=== PATIENT | female | born 1970 | race Caucasian/White ===

== ENCOUNTER → 2017-07-06 15:44 | Outpatient (CLI) | payer BC, SELFPAY | PROVIDERS: Visit Provider Obstetrics & Gynecology | DX: Z12.4 Encounter for screening for malignant neoplasm of cervix (principal) ==

== ENCOUNTER 2017-10-26 09:00 | Outpatient (RCR) | payer BC, SELFPAY ==
--- NOTE | 2017-10-26 09:00 | DT_ITS ---
This patient was seen during an EMR downtime October 19, 2017 - October 26, 2017. This patient may have a combination of paper and electronic documentation or all paper documentation. All documentation is viewable within the e-chart portion of [facility] for each patient visit.
--- NOTE | 2017-10-26 15:25 | BH.SGPN ---
Service Group Progress Note - Session Psychotherapy Session #1 Date Open:: 10/26/17 - 8 group members Time Started:: 09:04 Time Stopped:: 10:02 Targeted Problem #:: 1 Type of Group:: Process Goal of Group:: The goal of today's group was to check-in with client's mood, stressors, and positives, and introduce topic for the day. Client Response/Progress/Benefit:: Client responded well to session, first day in IOP. Client reports feeling anxious today, but glad she is getting help. Client shared she has been struggling with anxiety and depression most of her life with symptoms worsening over the past few months. Client reported its mentally and physically painful to make myself do things. Client stated she is often stuck in the past and would like to work on challenging thoughts to get out of my head. Client was receptive to emotional support given by peers and therapist. Client appeared to benefit from gaining support and connecting with the group. Client to continue IOP to prevent decompensation and reduce depressive symptoms. Eye Contact:: Good Motor Activity:: Appropriate Appearance:: Casual Speech:: Appropriate Mood:: Anxious, Dysthymic Affect:: Flat - tearful Thoughts:: Linear, Logical, No evidence of hallucinations/delusions noted Staff Interventions:: Therapist used open-ended questions to elicit information about client's current stressors and mood state. Therapist was supportive by using active listening and reflection.
--- NOTE | 2017-10-27 07:28 | BH.SGPN_ITS ---
Service Group Progress Note - Session Psychotherapy Session #1 Date Open:: 10/26/17 - 8 group members Time Started:: 09:04 Time Stopped:: 10:02 Targeted Problem #:: 1 Type of Group:: Process Goal of Group:: The goal of today's group was to check-in with client's mood, stressors, and positives, and introduce topic for the day. Client Response/Progress/Benefit:: Client responded well to session, first day in IOP. Client reports feeling ?anxious? today, but glad she is getting help. Client shared she has been struggling with anxiety and depression most of her life with symptoms worsening over the past few months. Client reported ?it?s mentally and physically painful to make myself do things.? Client stated she is often ?stuck in the past? and would like to work on challenging thoughts to ? get out of my head.? Client was receptive to emotional support given by peers and therapist. Client appeared to benefit from gaining support and connecting with the group. Client to continue IOP to prevent decompensation and reduce depressive symptoms. Eye Contact:: Good Motor Activity:: Appropriate Appearance:: Casual Speech:: Appropriate Mood:: Anxious, Dysthymic Affect:: Flat - tearful Thoughts:: Linear, Logical, No evidence of hallucinations/delusions noted Staff Interventions:: Therapist used open-ended questions to elicit information about client's current stressors and mood state. Therapist was supportive by using active listening and reflection.
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
--- NOTE | 2017-10-30 14:47 | BH.PSY.EVA_ITS ---
Initial Treatment Plan - Patient Information Visit Information: ADMISSION DATE: EXPECTED LOS: 4-6 weeks Diagnoses:: Major depressive disorder F 33.1 - Problems/Symptoms Problem #1:: Depression Symptom:: Sad mood, anhedonia, decreased energy, biologic disruption of appetite , recent passive thoughts of , difficulty concentrating Problem #2:: anxiety Symptom:: Rumination, panic, intrusive traumatic memories
--- NOTE | 2017-11-02 09:30 | BH.SGPN_ITS ---
Service Group Progress Note - Session Psychotherapy Session #2 Date Open:: 10/26/17 Time Started:: 10:15 Time Stopped:: 11:10 Targeted Problem #:: 1 Type of Group:: Illness Management Goal of Group:: To increase understanding and awareness of emotions connected to change and the impact those emotions can have on change. Client Response/Progress/Benefit:: Client passive participant as evidenced by limited contributions throughout group session. Client appeared to connect with others comments about fear failure and not wanting to leave comfort zone as common barriers to making change. Client also appeared to connect with the change process as evidenced by client nodding her head throughout discussion. Client seemed to benefit from increasing awareness of the process of change and how various emotions can impact ones ability to manage change. Client's passive participation could be attributed to today being client's first day in [facility]. Eye Contact:: Fair Motor Activity:: Restless Appearance:: Casual Speech:: Appropriate Mood:: Anxious, Depressed Affect:: Constricted Thoughts:: Linear, No evidence of hallucinations/delusions noted Staff Interventions:: Therapist facilitated group discussion about change. Therapist led the group in an activity in which the activity was utilized as a tool to increase clients awareness of emotions connected with change. Therapist led the processing of how each emotion was connected with change. Therapist provided psychoeducation process of change, helped group members apply it to their life. Therapist was supportive by providing feedback and using reflective listening. Psychotherapy Session #3 Date Open:: 10/26/17 Time Started:: 11:20 Time Stopped:: 12:15 Targeted Problem #:: 1 Type of Group:: Functional Skills Development Goal of Group:: To identify the challenges associated with making change and identify positive outcomes that have resulted from changes made in past. Client Response/Progress/Benefit:: Client passive participant only contributing if elicited by therapist did appear to attentively listen to others. Client showed increased engagement during challenge activity as evidenced by her being active throughout. Appeared to agree with others comments about change being unpredictable and the importance of utilizing supports when in need. Client identify one small change she is going to make is to do at least 5 minutes of daily meditation. Client seemed to benefit from identifying one small change she is going to start doing today. Eye Contact:: Fair Motor Activity:: Restless Appearance:: Casual Speech:: Appropriate Mood:: Anxious, Depressed Affect:: Constricted Thoughts:: Linear, No evidence of hallucinations/delusions noted Staff Interventions:: Therapist led group in an activity to help group members recognize the challenges associated with change. Therapist utilized activity as a tool to identify ways to manage changes and adapt to the challenges that ensue. Therapist facilitated group discussion about positive outcomes from change.
--- NOTE | 2017-11-03 10:37 | BH.SGPN_ITS ---
Service Group Progress Note - Session Psychotherapy Session #3 Date Open:: 10/30/17 Time Started:: 11:12 Time Stopped:: 12:03 Targeted Problem #:: 1 Type of Group:: Functional Skills Development - 6 participants Goal of Group:: The goal of group was to increase understanding of the different types of social support. Another goal was to identify one type of support the client?s desire from their support system and brainstorm ways to best communicate these needs as well establish one small step towards achieving that support. Client Response/Progress/Benefit:: Client responded well to session and appeared to take in information discussed. This was evidenced by client nodding head and maintaining mostly consistent eye contact throughout. CLient indicated connecting with topic of communicating support needs with social supports as she indicated struggling at times to know how to do this in a way her support person understands. CLient benefitted from being in the group environment as she indicated connecting with the experiences shared by fellow participants. Client displaying progress as she was more engaged in the group setting. Recommended continued IOP to increase client skills for managing symptoms of anxiety and communication with supports. Eye Contact:: Fair Motor Activity:: Appropriate Appearance:: Casual Speech:: Appropriate Mood:: Anxious, Dysthymic Affect:: Constricted Thoughts:: Linear, Logical, No evidence of hallucinations/delusions noted Staff Interventions:: Therapist facilitated group discussion on the different types of social support and importance of each type of support. A social support worksheet, was utilized to give clients direction in identifying which type of support they desired, how it will help, and identifying the first small step towards the desired support. Therapist provided homework for each group member to try and accomplish the one small step each group member identified on the worksheet.
--- NOTE | 2017-11-06 15:17 | BH.SGPN_ITS ---
Service Group Progress Note - Session Psychotherapy Session #1 Date Open:: 11/06/17 Time Started:: 09:10 Time Stopped:: 10:00 Type of Group:: Process - 8 group members Goal of Group:: The goal of today's group was to check-in with client's mood, stressors, and positives, and review homework. Client Response/Progress/Benefit:: Spoke when prompted. Shared very little during check-in. Emotion for today is anxious. Went to a conference over the weekend which was anxiety-producing however I managed becuase I had too. Went over some struggles. Benefited from group support. Little progress noted. Appears to minimize at times during group. Will continue in IOP to stablize mood , improve daily functioning, and prevent further decompensation. Eye Contact:: Poor Motor Activity:: Appropriate Appearance:: Casual Speech:: Appropriate Mood:: Anxious Affect:: Congruent Thoughts:: Linear, Logical, No evidence of hallucinations/delusions noted Staff Interventions:: Therapist used open-ended questions to elicit information about client's current stressors and mood state. Therapist was supportive by using active listening and reflection.
--- NOTE | 2017-11-06 15:38 | BH.SGPN ---
Service Group Progress Note - Session Psychotherapy Session #1 Date Open:: 11/06/17 Time Started:: 10:05 Time Stopped:: 11:05 Targeted Problem #:: 1 Type of Group:: Illness Management Goal of Group:: To increase understanding of fixed vs growth mindset and the importance of looking at problems in different ways. Client Response/Progress/Benefit:: Client passive participant AEB only contributing to discussion if elicited by therapist. Client showed increased engagement during challenge activity and appeared to listen attentively to others throughout discussions. Client appeared to connect with the fixed vs. growth mindset AEB client writing down notes throughout discussion. Client did share if she believes something is impossible she will just avoid it because she doesn't want to fail. Client shared the only reason she participated in activity today was because she had supportive people being encouaraging and if she was asked to do the activity by herself she would have given up. Client recognizes this holds her back from making progress. client seemed to benefit from gaining increased insight into how her response to challenges impacts her. Eye Contact:: Fair Motor Activity:: Appropriate Appearance:: Casual Speech:: Appropriate Mood:: Anxious, Dysthymic Affect:: Constricted Thoughts:: Linear, Logical, No evidence of hallucinations/delusions noted Staff Interventions:: Therapist facilitated discussion about fixed vs growth mindset. Therapist led group in an activity that would initially seem impossible to complete, but once group members looked at the problem in a different way they would be able to see alternative solutions. Therapist utilized the activity as a tool to discuss overcoming those situations that seem impossible to get through.
--- NOTE | 2017-11-06 16:57 | BH.MDN ---
Multi-Disciplinary Note - Note 45-min Individual Time Started:: 11:30 Date: 11/06/17 Purpose of session/treatment goals addressed:: The purpose of this session was to assess current stressors, symptoms, and distorted thinking patterns. Another purpose was to intoroduce the concept of cognitive distortions and work with client to discuss realistic expectations, and challenge cognitive distortions that increase ruminations. Other topics included: review of CBT thought record. Eye Contact:: Good Motor Activity:: Appropriate Appearance:: Casual Speech:: Appropriate Mood:: Anxious, Depressed Affect:: Constricted Thoughts:: Linear, Logical, No evidence of hallucinations/delusions noted Staff Interventions:: Therapist used active listening and open-ended questions to explore client's thoughts and adjustment to group setting following completion of her first week. Elicited information regarding current stressors, symptoms, cognitive distortions, and use of coping skills. Therapist provided psychoeducation on cognitive distortions and reviewed each distorted thinking style. Worked with client to identify, challenge, and reframe cognitive distortions. Therapist helped client assess and challenge expectations for herself, her progress, and treatment goals. Client Response:: Client responded well to session and indicated being open to meeting with therapist. She did well to discuss current stressors and symptoms as well as ongoing difficulties in adjusting to the group environment. CLient indicated enjoying the program and feeling as though she is getting valuable information from content discussed in each session; however, continues to struggle with her own self-doubt while in the group setting. She went on to explain being fearful of saying something wrong or embarrassing herself which has held her back from providing input at times. Client responded well to reassurance that adjusting to a new group setting can be difficult and often takes a week or so to feel comfortable. Client went on to discuss experiencing similar difficulties when in groups comprised of people she knows. Client shared often thinking that others are judging her or misinterpreting a comment to believe that someone is attacking her or talking down to her. CLient provided an example related to a recent experience in which she had believed a friend who was trying to give a compliment on her confidence by saying Amy wouldn't have just stood there and taken it, she would've told them like it is had called her selfish and brash instead. Client identified beliefs that her expectations for herself are much higher than the expectations she has for others. She stated often struggling to be in the present moment as she is constantly thinking about the past or future and analyzing the statements of others. Client and therapist discussed concept of cognitive distortions and client identified specific thoughts related to each type of distortion that she has experienced. Client expressed identifying most with black and white thinking, personalization, and catastrophizing. Client and therapist walked through various strategies for challenging these thoughts and discussed identifying the evidence for/against a thought as well as ways to reframe her thoughts into something more positive. Client expressed wanting to practice this on a more consistent basis on her own and discussed plans to begin keeping a journal of the negative thoughts she has throughout the day and ripping them up at night. Client open to choosing 1-2 of these thoughts and challenging them in a CBT thought record in order to begin identifying alternative ways to view her thoughts. Risks/Concerns:: Client denies suicidal or homicidal ideation, plan, and intent as of 11/06/17. Client is future oriented and aware of crisis resources available. She expresses her family as motivations to continue making strides in learning to manage mental health sx. Progress Toward Goals/Plan:: Client demonstrating some progress in willingness to open up to the group and provide input during sessions. Client additionally displaying progress towards treatment goals as she was able to begin identifying distorted thinking patterns and did well to work with this therapist on identifying unrealistic expectations of herself. Client continues to report difficulties with intrusive and ruminating thoughts. She shares that this continues to reinforce self-deprecating talk and anxiety regarding what others are thinking of her. Recommended continued IOP to work on implementing strategies for reducing and challenging ruminations as well as increasing client stress management and boundary setting capabilities while learning to manage mental health symptoms. Time Stopped:: 12:15
--- NOTE | 2017-11-09 14:48 | BH.SGPN_ITS ---
Service Group Progress Note - Session Psychotherapy Session #2 Date Open:: 11/09/17 - 9 group members Time Started:: :25 Time Stopped:: 11:15 Targeted Problem #:: 1 Type of Group:: Illness Management Goal of Group:: To increase understanding of communication and the various types of communication. Another goal was to increase understanding of impact communication styles can have. Client Response/Progress/Benefit:: Client responded well to session, passive participant, taking notes. Client connected with the quote sharing, I don?t always use good communication.? Client reported communication is important to help supports understand clients? mental health. Client identified communication ?roadblocks? such anxiety, mind-reading, and emotions. Client helped the group identify the different communication types along with the payoffs and costs of each. Client reported she uses passive and passive- aggressive communication most of the time. Client reported ?I either say something and feel guilty or don?t say anything.? Client stated her needs are not being met with her current communication style. Client appeared to benefit from gaining awareness of how communication impacts mental health. Progress noted as evidenced by client?s improved self-awareness, but can continue to benefit from challenging negative thoughts. Eye Contact:: Good Motor Activity:: Appropriate Appearance:: Casual Speech:: Appropriate Mood:: Anxious Affect:: Flat Thoughts:: Linear, No evidence of hallucinations/delusions noted Staff Interventions:: Therapist facilitated the group discussion about communication and explained the different types of communication. Therapist assisted group members in connecting the communication styles to the way they communicate and impact the communication style has on their relationships. Therapist provided support by using active listening and providing feedback. Psychotherapy Session #3 Date Open:: 11/09/17 - 7 group members Time Started:: :25 Time Stopped:: 12:15 Targeted Problem #:: 1 Type of Group:: Functional Skills Development Goal of Group:: To identify important components of communication and practice specific, clear communication. Client Response/Progress/Benefit:: Client responded well to session, passive participant, using active listening. Client provided some feedback during the activity, but was mostly quiet. Client expressed anxiety prevents client from being assertive and sharing in group because client does not want to say the wrong thing. Client shared emotions, nonverbal communication, and assumptions impact communication. Client reported she wants to be more assertive to help client?s needs get met. Client helped the group identify strategies to improve communication such as having awareness of nonverbals and body language, managing emotions, and using specific communication. Client appeared to benefit from gaining awareness of the pros of using more assertive communication. Client to continue IOP to prevent decompensation and reduce anxiety. Eye Contact:: Good Motor Activity:: Appropriate Appearance:: Casual Speech:: Appropriate Mood:: Anxious Affect:: Flat Thoughts:: Linear, Logical, No evidence of hallucinations/delusions noted Staff Interventions:: Therapist led the discussion about important components of effective communication. Therapist had volunteers from group participate in a reverse Pictionary game. The game required all group members to provide clear , specific, and assertive communication to help the volunteer draw the correct image. Therapist used the activity as to connect the importance of effective communication in mental health treatment. Therapist processed the activity with the group and helped the group identify strategies to improve communication skills.
--- NOTE | 2017-11-09 16:46 | BH.SGPN ---
Service Group Progress Note - Session Psychotherapy Session #1 Date Open:: 11/09/17 Time Started:: 09:07 Time Stopped:: 10:18 Targeted Problem #:: 1 Type of Group:: Process - 8 participants Goal of Group:: The goal of today's group was to check-in with client's mood, stressors, and positives, review homework and introduce topic for the day. Client Response/Progress/Benefit:: Client responded well to session, openly shared with the group, and was receptive of feedback. She discussed having had an enjoyable start to her weekend as she had been able to spend time with family for her nephew's birthday. She went on to discuss increasing frustration with her 24 year old daughter who client has taken on the responsibility of providing transportation for due to her daughter not having a license. Client discussed that providing her transportation is not the biggest stressor but rather caring for her daughter's twp puppies when she is away during the day. Client indicated that she has tried to set boundaries but ends up feeling too guilty about leaving the dogs alone and ends up giving in. CLient benefitted from the supportive feedback and suggestions provided by the group. CLient displayed progress in her ability to open up to the group and discuss current frustrations without fear of judgement preventing her in doing so. CLient continues to struggle with rumination and distorted thinking patterns and is recommended continued IOP to continue to work on challenging unhelpful thinking patterns and negative core beliefs. Eye Contact:: Good Motor Activity:: Appropriate Appearance:: Casual Speech:: Appropriate Mood:: Anxious, Irritable, Depressed Affect:: Congruent Thoughts:: Linear, Logical, No evidence of hallucinations/delusions noted Staff Interventions:: Therapist used open-ended questions to elicit information about client's current stressors and mood state. Therapist was supportive by using active listening and reflection. Therapist utilized a quote as a tool in introducing the topic of the day.
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
--- NOTE | 2017-11-13 14:55 | BH.SGPN ---
Service Group Progress Note - Session Psychotherapy Session #1 Date Open:: 11/13/17 Time Started:: 09:08 Time Stopped:: 10:18 Targeted Problem #:: 1 Type of Group:: Process - 7 participants. Goal of Group:: The goal of today's group was to check-in with client's mood, stressors, and positives, review homework and introduce topic for the day. Client Response/Progress/Benefit:: Client responded well to session and was actively engaged throughout. She did well to remain attentive as fellow participants discussed current thoughts, feelings, and treatment progress. Client benefited from hearing experience of fellow participants ongoing frustrations with symptom management as well as the various healthy skills they have found effective in challenging negative or distorted thinking patterns. Client discussed spending the day at [facility] yesterday with her [id number] and nephews and nieces. She indicated that the trip had gone all right but near the end of the day client began to become overheated which caused increased anxiety levels as client feared becoming sick. She discussed ruminating on this and that her anxiety began to impact her overall mood and ability to enjoy her trip. Client shared frustration with failing to utilize thought challenging and reframing techniques in the moment as she was able to identify ways to challenge her thoughts later in the evening. Client was receptive to follow participants discussing that her ability to think about these thoughts afterward is still progress and that she will become more capable of applying skills in the moment with continued practice. Client is displaying progress in her receptivity of treatment concepts and willingness to attempt application of skills learned in daily life. Recommended continued IOP in order to further increase clients ability to successfully implement skills outside of treatment environment. Eye Contact:: Good Motor Activity:: Appropriate Appearance:: Casual Speech:: Appropriate Mood:: Anxious, Dysthymic Affect:: Congruent Thoughts:: Linear, Logical, No evidence of hallucinations/delusions noted Staff Interventions:: Therapist used open-ended questions to elicit information about client's current stressors and mood state. Therapist was supportive by using active listening and reflection.
--- NOTE | 2017-11-16 09:11 | BH.SGPN_ITS ---
Service Group Progress Note - Session Psychotherapy Session #2 Date Open:: 11/13/17 Time Started:: 10:30 Time Stopped:: 11:20 Targeted Problem #:: 1 Type of Group:: Illness Management Goal of Group:: To increase understanding of cognitive distortions, identify examples of when have had unhelpful thinking, and increase awareness of the impact cognitive distortions have on mental health. Client Response/Progress/Benefit:: Client passitve participant, contributing to discussion if elicited by therapist. Client appeared to connect when reviewing the 10 common cognitive distortions. Client identified she connected with catastrophizing and overgeneralization the most. Client appeared to relate to others comments how one's distorted thoughts can create an event or situation that really hasn't occured like believing someone doesn't like you, but has no evidence to support this thought. Client seemed to benefit from increasing awareness of cognitive distortions and impact thoughts can have on one's functioning. Eye Contact:: Fair Motor Activity:: Appropriate Appearance:: Casual Speech:: Appropriate Mood:: Anxious, Dysthymic Affect:: Congruent Thoughts:: Linear, Logical, No evidence of hallucinations/delusions noted Staff Interventions:: Therapist provided group members with a handout that listed ten cognitive distortions with examples. Therapist facilitated group discussion about cognitive distortions. Therapist led group members in an activity to help them understand the impact cognitive distortions can have on emotions and behavior. Therapist provided support by using active listening and providing feedback. Psychotherapy Session #3 Date Open:: 11/13/17 Time Started:: 11:30 Time Stopped:: 12:20 Targeted Problem #:: 1 Type of Group:: Functional Skills Development Goal of Group:: To identify ways of defeating cognitive distortions and rehearse defeating the identified cognitive distortion. Client Response/Progress/Benefit:: Client seemed more engaged thoughout session AEB client contributing to group without elicitation by therapist and listened attentively to others. Client identified a distorted thought she often has is I 'm probably going to have a panic attack when I get to work. Client reported this thought results in feeling more anxious and recognzies now she is predicting the future. Client able to reframe thought to I have successfully been to work on many occassions and have not had a panic attack. Client seemed to benefit from rehearsing identifying cognitive distortions and practicing reframing. Eye Contact:: Fair Motor Activity:: Appropriate Appearance:: Casual Speech:: Appropriate Mood:: Anxious, Dysthymic Affect:: Constricted Thoughts:: Linear, Logical, No evidence of hallucinations/delusions noted Staff Interventions:: Therapist utilized an activity as a tool in helping clients connect the amount of effort one will need to put forth to defeat cognitive distortions. Therapist provided group members with a handout to use as an aid when trying to defeat their unhelpful thinking. Therapist processed the worksheet with group members, helping them reframe the cognitive distortions.
[2018-01-01 10:57] VITALS: BP 116/73; PULSE 64; RESP 14
== END 2017-11-14 23:59 ==
LOC: BHIOP 09:00
PROVIDERS: Visit Provider Psychiatry & Neurology Psychiatry
DX: F33.1 Major depressive disorder, recurrent, moderate (principal); F41.9 Anxiety disorder, unspecified; F43.10 Post-traumatic stress disorder, unspecified
CPT/HCPCS: H0035; 90834; 90853

== ENCOUNTER 2017-11-17 09:00 | Outpatient (RCR) | payer BC, SELFPAY ==
--- NOTE | 2017-11-16 14:52 | BH.COMM ---
Communication Note - Communication with Client Communication Note: Client called to cancel group attendance on this date as she forgot about a previously scheduled appointment. Client indicates she will be in for group in the morning.
--- NOTE | 2017-11-17 11:26 | BH.MDN ---
Multi-Disciplinary Note - Note 60-min Individual Time Started:: 12:13 Date: 11/17/17 Purpose of session/treatment goals addressed:: The purpose of this session was to assess current symptoms and treatment goal progress. Another purpose was to increase client insight and awareness of early warning signs and triggers for anxiety and panic symptoms as well as potential strategies for preventing symptom escalation. Additional topics included: communication and boundaries with supports. Negative self-talk. Eye Contact:: Good Motor Activity:: Appropriate Appearance:: Casual Speech:: Appropriate Mood:: Anxious Affect:: Congruent Thoughts:: Linear, Logical, No evidence of hallucinations/delusions noted Staff Interventions:: Therapist aksed open-ended and futhering questions to gather Client current symptoms, stressors, and treatment goal progress. Provided psychoeducation regarding Anxiety Disorder, common symptoms, and coping skills. Assisted Client in identifying symptoms and warning signs personally experienced. Worked with client to discuss the importance of healthy boundaries and consistently practicing strategies for managing sx to prevent panic. Client Response:: Client receptive of meeting for session, and engage throughout. She did well to openly provide input and insight into current symptoms and progress towards treatment goals. Client discussed feeling as though she is finally beginning to see progress in her management of mental health sx; however, expressed ongoing frustrations with he difficulties applying treatment concepts in the moment. She didcussed continuing to see what ways she may have reacted or challenged her thoughts following a moment of increased anxiety but is unable to do so during. CLient indicated that she had an ah-garcía moment during group in which she was able to see why practing the skills she is learning is important. Client went on to explain never thinking about how if she practices thought challenging it will come more naturally in a crisis moment. CLient additionally shared struggling to identify when she is becoming anxious and indicated that often she does not notice until she is in a crisis state. Client and therapist reviewed importance of warning sign awaress to prevent symptom escalation and reviewed common warning signs, triggers, and symptoms for anxiety. Client struggled at first with identifying personal triggers but began to increase in ability to do so as she reflected upon recent experiences of increased anxiety. CLient indicates lack of routine and being away from home for too long as major triggers. She was receptive of the idea of having her supports point out potential warning signs and triggers they have seen to increase awareness. Client receptive of also thinking about what would help in moments she is experiencing increased anxiety so that she may communicate such with her supports. CLient growing concern regarding a family vacation at the end of the month. She expressed worrying that her daughter and sister will fight the whole time. Client believes this will increase her anxiety. She did wellt o work with therapist on identifying what within the situation is in her control and what she can do to prevent a panic attack during vacation. CLient discussed wanting to create an anxiety management plan and shared that discussing her concerns with her daughter may also prevent some fighting. Risks/Concerns:: No risks or concerns at this time. CLient SI, plan, or intent at this time, 11/17/17. Progress Toward Goals/Plan:: Client displaying consistent progress in IOP program. She reports increased ability to identify distorted thoughts after the fact, thought struggles to do so in the moment. CLient expresses ongoing issues with anxiety and ruminating thought, though shared that she is able to gain back control and challene these thoughts quicker. Client reports that duration of anxiety has decreased since beginning iop program. Client is additionally expressing an increase in ability to identify what thoughts and behaviors contribute to anxious thoughts. CLient recommended continued IOP to maintain stability and continue to work with client on applying anxiety management and thought challenging techniques moments of increased panic or rumination in order to prevent crisis escalation. Time Stopped:: 13:18
--- NOTE | 2017-11-17 14:04 | BH.SGPN_ITS ---
Service Group Progress Note - Session Psychotherapy Session #1 Date Open:: 11/17/17 - 5 group members Time Started:: 09:10 Time Stopped:: 10:07 Targeted Problem #:: 1 Type of Group:: Process Goal of Group:: The goal of today's group was to check-in with client's mood, stressors, and positives, review homework and introduce topic for the day. Client Response/Progress/Benefit:: Client responded well to session, active participant. Client stated this week has been ?crazy? so far as client feels overwhelmed with all of the tasks she has to do which leads to client putting her needs on the ?backburner.? Client stated she continues to struggle with feeling like she has to help everyone and client was provided positive feedback from peers on the importance of setting boundaries. Client shared her anxiety is typically most intense in the mornings, but client recognizes once she gets going ?it?s never as bad as I think it will be.? Client reports feeling ?hopeful ? despite the busy week as she has been doing better with implementing thought challenging strategies to manage negative thoughts and anxiety. Client appeared to benefit from gaining supportive statements from peers on boundary setting and self-care. Client to continue IOP to prevent decompensation and reduce anxiety. Eye Contact:: Good Motor Activity:: Appropriate Appearance:: Neat Speech:: Appropriate Mood:: Anxious Affect:: Constricted Thoughts:: Linear, Logical, No evidence of hallucinations/delusions noted Staff Interventions:: Therapist used open-ended questions to elicit information about client's current stressors and mood state. Therapist was supportive by using active listening and reflection.
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
--- NOTE | 2017-11-17 15:08 | BH.SGPN ---
Service Group Progress Note - Session Psychotherapy Session #2 Date Open:: 11/17/17 Time Started:: 10:20 Time Stopped:: 11:15 Targeted Problem #:: 1 Type of Group:: Illness Management Goal of Group:: To increase understanding of a crisis and improve clients awareness of how he/she feels when in a crisis. Client Response/Progress/Benefit:: Client passive participant, contributing if elictied by therapist. Client reported she could connect with the how she responds to a crisis can either help her or make things worse. Client shared when she is in a crisis she feels like it is a never ending loop because she keeps ruminating and overthinking the situation. client shared she connected with the idea of needing to rehearse skill when not distressed because individuals will go back to what is comfortable which often is negative skills. client reported she used to believe if she thought out a situation it would make things better, but recognizes it leads to obsessive thinking and no resolution. Client shared she didn't know why it was recommeded for her to practice the skills when not in distress, but now understands the rationale. Client seemed to benefit from gaining awareness of the way she yoko with a crisis impacts her. Eye Contact:: Fair Motor Activity:: Appropriate Appearance:: Casual Speech:: Appropriate Mood:: Anxious Affect:: Constricted Thoughts:: Linear, Logical, No evidence of hallucinations/delusions noted Staff Interventions:: Therapist facilitated group discussion about defining a crisis and specifying various events that are considered a crisis. Therapist led group in an activity in which group members had to identify their thoughts and emotions attached to being in a crisis. Therapist provided support by using active listening and providing feedback. Psychotherapy Session #3 Date Open:: 11/17/17 Time Started:: 11:25 Time Stopped:: 12:15 Targeted Problem #:: 1 Type of Group:: Functional Skills Development Goal of Group:: To increase awareness of warning signs before a crisis and identify interventions/coping strategies that would help clients proactively manage potential crises. Client Response/Progress/Benefit:: Client showed increased engagement and participation throughout session. Client identified her top 3 warning signs that she is starting to not do well include: unusual drop in functioning, increased negative thinking, and racing thoughts. Client shared for her crisis survival kit she chose a pink string because the color pink is calming and she could use it to create a bracelet. Client reported chose a seashell because the beach is her happy place. Shared chose a teabag because finds drinking tea to be soothing and calm. Reported she chose a flower to remind her that nature is calming and enjoyable. Lastly client reported she chose the word cherish to remind her that she has positive supports she can surround herself with. Client seemed to benefit from increasing awareness of her warning signs and creating a crisis kit that is tangible and visable to client which will help her remember her positive skills in the moment. Eye Contact:: Fair Motor Activity:: Appropriate Appearance:: Casual Speech:: Appropriate Mood:: Anxious Affect:: Congruent Thoughts:: Linear, Logical, No evidence of hallucinations/delusions noted Staff Interventions:: Therapist led the group in discussion about identifying personal warning signs before a crisis and importance of being aware of those signs.Therapist provided the group with various types of items and asked each group member to select five items that represent something that would be helpful in managing their warning signs of a crisis. Therapist facilitated group processing of the crisis emergency kits each group member created. Therapist used open-ended questions to encourage elaboration of each item chosen for their kit. Therapist helped clients connect how the crisis emergency kit could help be a crisis prevention tool.
--- NOTE | 2017-11-23 09:10 | BH.SGPN.GN ---
Behaviors/Verbalizations/Mental Status: [] Client maintain clear and consistent eye contact throughout. Motor activity was appropriate, speech WNL. Client was dressed casually and comfortable. Mood appeared euthymic and anxious, expressed as apprehensive. Client affect congruent with mood. Thoughts remained linear, logical, and No delusions or hallucinations noted. Client Response/Progress/Benefit: [] Client responded well to session was an active participant throughout. Discussed that her we can have been super busy but overall positive experience. Client indicated she and her had taken a trip out of town to celebrate their anniversary. Client discussed that prior to them leaving for the trip her sister had decided that she and her [id number] would also like to come along which had been a bittersweet experience for everyone. Client went on to explain that her sister can be very uptight about things and had gotten upset when she saw that the place they were staying for the weekend was dated. Client indicated that this initially caused her to fall into negative thought patterns and think the whole trip is ruined or why does she always do this. She however did well to recognize and challenge these thoughts and indicated that doing so allowed for client to replace the negative emotions with thoughts of I'm not going to let this ruin the whole trip for me. Client shared beginning to see positive progress in her ability to manage anxieties and negative thinking patterns. She is recommended continued IOP to further improve healthy skill utilization and management of mental health symptoms.
--- NOTE | 2017-11-23 10:27 | BH.SGPN.GN ---
Behaviors/Verbalizations/Mental Status: []Client alert and oriented, neatly dressed and groomed. Eye contact good. Motor activity appropriate. Speech within normal limits. Affect constricted, mood anxious. Thoughts linear, logical, no signs of hallucinations or delusions. Client Response/Progress/Benefit: []Client responded well to session, participating when prompted. Client connected with the quote sharing, I catastrophize and then feel worse. Client helped group identify the physical, mental, behavioral, and emotional impacts of stress. Client reported theres healthy and unhealthy stress, but when one experiences continued stress it can lead to burnout, panic, and depression. Client shared stress gets me first mentally sharing she has a hard time shutting off my mind when highly stressed. Client identified current stressors in her life such as setting boundaries, negative self-talk, other peoples problems, and family. Client shared her stress jar is over correction full, which client described as manageable due to thought challenging. Client stated when she does not manage stress, client has panic attacks, racing thoughts, and feels overwhelmed. Client appeared to benefit from gaining awareness of her current stressors and how they impact mental health. Client to continue IOP to prevent decompensation and increase mood stability.
--- NOTE | 2017-11-23 11:29 | BH.SGPN.GN ---
Behaviors/Verbalizations/Mental Status: []Client alert and oriented, neatly dressed and groomed. Eye contact good. Motor activity appropriate. Speech within normal limits. Affect constricted, mood anxious. Thoughts linear, logical, no signs of hallucinations or delusions Client Response/Progress/Benefit: []Client responded well to session, participating in activity and discussion. Client engaged in the group activity and connected it to managing stress sharing, you have to communicate and use your supports. Client helped the group create a list of helpful stress management strategies and identified strategies that would help her deal with stress such as having awareness of stressors, prioritizing, challenging cognitive distortions, and focusing on stressors in her control. Client reported of her current stressors, negative thinking, boundaries, and managing emotions are in clients control. Client was receptive to learning the four As of coping with stress and appeared to benefit from learning different ways to manage stress. Client seems to be progressing as evidenced by her report of increased self-awareness when client has negative thinking patterns, but continues to struggle at times with consistent implementation of coping skills.
--- NOTE | 2017-11-25 13:35 | BH.COMM ---
Communication Note - Communication with Client Communication Note: Client called and requested to speak with this therapist . She discussed struggling with increased anxiety for the past two hours without relief. Client discussed attempting to use the skills she has learned while in the IOP program however has been unsuccessful. She worked with this therapist to talk through and process anxiety provoking thoughts as well as apply thought challenging techniques. Client and therapist discussed a plan for client to write herself a letter reminding her of the evidence against these unhelpful thoughts as well as what client's personal strengths are. Client able to calm herself down throughout conversation with this therapist; however, indicated feeling as though this means she is starting back at square one with her anxiety. Client receptive of discussion reviewing setbacks as part of the process of making progress. Client indicated that her sister would be coming over which would help to take client's mind of of the negative self-talk. Expressed that if she experiences high levels of anxiety tomorrow she may come in for group.
--- NOTE | 2017-11-27 09:10 | BH.SGPN.GN ---
Behaviors/Verbalizations/Mental Status: [] Eye contact is fair. Motor activity is restless. Appearance is casual. Speech is appropriate. Mood is anxious. Affect is congruent. Thoughts are linear and logical. No evidence of hallucinations or delusions noted. Client Response/Progress/Benefit: [] Pt spoke with prompted. Shared that her emotion today is anxious. Shared that she had significant anxiety symptoms this week w/o any specific trigger. States that she is frustrated as she had started to see progress. Reports that he coping skills seemed ineffective and her mind was racing. Vented her frustrations and symptoms. Group provided feedback and support. Encouraged her to not label this anxiety episode or herself as a failure. Pt struggled with anxiety this week, however did attempt to utilize skills and support rather than isolate. Will continue in IOP to stabilize mood, decrease anxiety, and improve daily functioning. Narrative Note: []
--- NOTE | 2017-11-27 10:15 | BH.SGPN.GN ---
Behaviors/Verbalizations/Mental Status: [Client alert and orient x3. She was able to participate in group and maintained regular eye contact throughout. Client motor activity normal - at times appearing restless AEB client fidgeting, though remained engaged. Appearance was neat but casual, grooming and hygiene well maintained. Speech remained within normal limits. Mood was dysthymic, anxious, affect constricted. Thoughts remained linear and logical, void of observable hallucination or delusions.] Client Response/Progress/Benefit: [Client willing to engage in session and did well to remain a mostly active participant throughout. She took on a mostly passive participatory role however provided some input to the conversation discussing various conflict resolution styles and potential scenarios in which each would be appropriate to use. CLient benefited from identifying the various positive qualities of each resolution style and challenging herself to reflect upon which type of conflict resolution style she utilizes in her own life. Client discussed feeling as though she is either one extreme or another and either is accommodating and goes along with whatever everyone else says until she becomes tired of not feeling heard and then becomes a shark. CLient displaying progress in levels of insight regarding the impact her own thoughts have on her mental health and treatment progress and is beginning to actively challenge such. Recommended continued IOP to continue to make progress towards tx goals and improve client thought challenging capabilities, as well as to prevent decompensation. ] Narrative Note: []
--- NOTE | 2017-11-27 11:16 | BH.SGPN.GN ---
Behaviors/Verbalizations/Mental Status: [Client alert and orient x3. Active participant, well engaged. Maintained fair eye contact throughout. Client motor activity normal - at times fidgeting. Appearance was clean and casual, grooming and hygiene well maintained. Speech remained within normal limits. Mood was euthymic, anxious. affect congruent. Thoughts remained linear and logical, void of observable hallucination or delusions. ] Client Response/Progress/Benefit: [Client responded well to session and did well to provide input throughout. CLient appeared to benefit from challenging herself to engage in the group activity in which participants were given a hypothetical situation causing them to make difficult decisions about what items to keep as a group. She was able to speak up and vocalize her opinions with the group. Client discussed tat this was easier in the activity than in daily life because the setting was more comfortable and she knew that the outcome was less important. Client shared that often times she does not advocate for her own needs in her daily life out of fear of what people with think or not wanting to be a burden. Client displaying some progress in ability to identify distorted thought patterns however recommended continued IOP to further improve ability to challenge negative or distorted thinking in order to reduce overall anxiety and depression levels. ] Narrative Note: []
--- NOTE | 2017-11-27 15:03 | PCM.PN.BLA ---
Progress Note Patient is seen in follow-up for major depressive disorder recurrent moderate of 33.1, anxiety unspecified, PTSD. History is been obtained per interview with patient, discussion with staff, review of chart. Case discussed with treatment team. Chief complaint anxiety help me back Interim history Patient reports that her mood is overall improved. She continues to have some mild depressive symptoms which wax and wane but she feels that her anxiety predominates. She states that for 2 weeks she was doing pretty well but her anxiety increased 2 days ago. She reports increased negative rumination and intrusive traumatic memories. She endorses anxiety about being alone. Discussed symptoms associated with PTSD. No suicidal or homicidal ideation. No symptoms consistent with psychosis. Consuming 2-4 caffeinated sodas daily. Sleeping from 10 PM to 7 AM. Appetite normal. Denies nausea vomiting or diarrhea. Compliant with medications. Celexa 20 mg daily, trazodone 50 mg nightly, metoprolol. Denies adverse effects. Has not used Xanax. Used Atarax only once within the past few weeks. Mental status exam Alert and oriented . No acute distress. Ambulatory with normal gait and station. Appears stated age. Casually dressed and groomed. Appropriate hygiene. Cooperative with interview. Good eye contact. No psychomotor agitation or retardation. Mood improved.. Affect congruent. Speech is clear and with regular rate and rhythm. Language fluent. Thought process organized. Associations logical. Thought content significant for ruminative anxiety and themes of depression. No suicidal or homicidal ideation related or detected.. No symptoms consistent with psychosis noted or detected. Immediate recent and remote memory grossly intact. Attention and concentration are fair. Estimated intelligence and fund of knowledge average. Judgment and insight improving.\ Labs and testing TSH normal August 2017. Further lab work will be obtained as needed Diagnosis Major depressive disorder recurrent moderate F 33.1 Anxiety unspecified PTSD Plan Continue IOP as the structured setting is necessary to maintain gains and prevent decompensation. Risks benefits alternatives of medications discussed with patient. Patient acknowledges understanding. Continue Celexa 20 mg daily. Continue trazodone 50 mg nightly. Continue Atarax 25 mg 1-2 p.o. daily as needed. Continue metoprolol. Referral provided to the [facility] for trauma therapy. Encouraged decrease caffeine use. Encouraged to establish with outpatient psychiatric providers for when IOP complete. 25 minutes of Insight oriented psychotherapy provided regarding trauma. Patient acknowledges understanding and is in agreement with plan. Feels able to maintain safety. Agrees to seek help or emergency care feeling unsafe to self or others. End of dictation thanks
--- NOTE | 2017-11-27 16:13 | BH.MDN_ITS ---
Multi-Disciplinary Note - Note 45-min Individual Time Started:: 12:17 Date: 11/27/17 Purpose of session/treatment goals addressed:: The purpose of this session was to address client ongoing concerns regarding daily anxiety and difficulty managing rumination or anxiety provoking thoughts. Another purpose was to discuss strategies for Client to practice to both prevent and better manage symptoms of anxiety on a daily basis. Eye Contact:: Good Motor Activity:: Restless Appearance:: Casual Speech:: Appropriate Mood:: Anxious, Dysthymic Affect:: Congruent Thoughts:: Linear, Logical, No evidence of hallucinations/delusions noted Staff Interventions:: Therapist used open-ended questions to gather information on current symptoms, thoughts, and stressors. Reviewed with Client current strategies used for managing symptoms of anxiety and rumination. Reviewed with client various previously identified coping mechanisms and further discussed potential strategies for thought challenging. Used CBT interventions to review Cognitive Distortions and discuss application of cognitive restructuring, use of client supports, and mindfulness techniques to reduce current anxiety levels. Client Response:: Client responded well to session and receptive of meeting with therapist. She discussed doing better today than she had been on Thursday when client had called in to speak with this therapist due to increased sx of anxiety. Client reflected that for her it appears her anxiety is at its worst during the morning hours and usually takes 2-3 hours before she is able to calm down. When asked to review her typical morning routine, client indicated that she does not usually have a set routine but finds herself avoiding getting out of bed because she knows she is going to feel anxious and that things are only going to get worse from here. Client indicated that talking through the worrying thoughts with a support is helpful but that she struggles with identifying ways to ease her anxieties on her own. She responded well to working with therapist on identifying areas of distorted thinking she may be experiencing in the morning and recognized use of predicting the future or catastrophizing before client even gets out of bed. Client shared beliefs that if she can prevent herself from entering the rumination cycle she will be able to more easily prevent escalating to panic levels; however, struggles to find what interventions or calming skills may keep her from falling into cycle of rumination. Client connected with the idea of beginning to establish a more structured morning routine as she has previously discussed that she likes having a schedule to adhere to. CLient indicated wanting to incorporate exercise into her routine as she feels this will help her to redirect her thoughts and focus more on what she is accomplishing rather than ruminate on not knowing what else could occur that day. Client additionally discussed that her sister is often helpful as she has similar struggles with managing anxieties. Client indicated never inquiring what helps her sister manage anxiety and decrease rumination. Client open to setting aside time to discuss this with supports over the weekend as well as begin establishing a morning routine of limiting time in bed to prevent engaging negative thoughts and instead doing an active activity such as going for a walk or practicing a yoga [employer] video. Risks/Concerns:: Client denies suicidal or homicidal ideation, plan, and intent as of 11/27/17. Client is future oriented and aware of crisis resources available. She expresses her family as motivation to continue making strides in learning to manage mental health sx and maintaining safety. Progress Toward Goals/Plan:: Some regression. Client has expressed experiencing increased anxiety and rumination throughout the morning hours. She expressed that she has seen limited impact in reducing or managing these symptoms during the moment of increased anxiety and on one occasion experienced a panic attack due to sx escalation. CLient reports struggling to implement thought challenging interventions or calming strategies as client indicates that by the time she realizes she is anxious her symptoms have reached a point where she feels unable to control them. Client is beginning to identify the importance of practicing tx concepts outside of times of increased anxiety however continues to struggle with self-doubt and disbelief in her ability to successfully manage sx when supports are unavailable. CLient recommended continued IOP tx to maintain stability and increase successful identification and implementation of internal coping mechanisms and stress management strategies. Time Stopped:: 13:00
--- NOTE | 2017-12-01 09:12 | BH.SGPN.GN ---
Behaviors/Verbalizations/Mental Status: [Client alert and orient x3. Well engaged. Client maintained good eye contact throughout. Motor activity appropriate; somewhat restless AEB shakig legs and fidgeting with shirt. Appearance was casual and clean, grooming and hygiene appropriate. Speech within normal limits. Mood was dysthymic, anxious, affect constricted. Thoughts linear and logical, with no present hallucinations or delusions. Therapist reviewed clients symptom tracker to assess for intensity of mental health symptoms and identify risk for suicide. No signs of suicidal ideation, plan, or intent to date.] Client Response/Progress/Benefit: [Client responded positively to session, active participant throughout. She indicated connecting with another participant's check-in in which they shared reflecting upon what it means to forgive and why we forgive in the first place. Client discussed feeling as though she has spent so much time focusing on the things she has done wrong and worrying about how they might impact her in the future that she has not been able to really experience the resent. CLient went on to indicate beliefs that her mental health would improve if she began practicing self-forgiveness, however is strugglig to identify where she should start. Client benefitted from group members encouragement and discussions regarding their own difficulties in letting go of mistakes or failures. She is displaying progress in her ability to identify where her locus of control lies in managing negative or ruminative thoughts. Client recommended continued IOP tx to maintain stability as client continues to work on thought challenging and cognitive restructuring skills.] Narrative Note: []
--- NOTE | 2017-12-01 10:30 | BH.SGPN.GN ---
Behaviors/Verbalizations/Mental Status: []Client alert and oriented, neatly dressed and groomed. Eye contact good. Motor activity appropriate. Speech within normal limits. Affect constricted, mood anxious, euthymic. Thoughts linear, logical, no signs of hallucinations or delusions. Client Response/Progress/Benefit: []Client responded well to session, active participant. Client appeared to connect with the topic stating, life is chaos, but you have to learn to manage it. Client shared she has felt anxious, overwhelmed, and stuck when faced with life stressors, but connected that she has been able to make it through because client is resilient. Client reported that resilience is bouncing back after a hardship. Client helped peers identify the factors that contribute to building resilience such as self-care, living to learn, and self-awareness. Client shared she has been working on being aware of her negative thoughts and being more optimistic to build resilience. Client appeared to benefit from increasing awareness of resilience and the factors that help build resilience. Progress noted per clients report of incorporating thought-challenging more often to combat ruminations, but continues to struggle with managing anxiety and guilt. Client to continue IOP to prevent decompensation and increase mood stability.
--- NOTE | 2017-12-01 16:49 | BH.MDN_ITS ---
Multi-Disciplinary Note - Note 60-min Individual Time Started:: 11:30 Date: 12/01/17 Purpose of session/treatment goals addressed:: Review progress, assess current symptoms, and aid in addressing and problem solving current concerns. Addressed treatment goal 1 objective 1 & 2. Eye Contact:: Good Motor Activity:: Appropriate Appearance:: Casual Speech:: Appropriate Mood:: Anxious Affect:: Constricted Thoughts:: Logical, Circular, No evidence of hallucinations/delusions noted Staff Interventions:: Use open-ended questions to elicit additional iformation regarding current symptoms and stressors. Utilize DC techniques to elicit change behaviors and problem solve current barriers to managing anxieties. Aided client in applying thought challenging and replacement techniques as well as assisted client in creating anxiety management plan for upcoming vacation. Client Response:: Current receptive of session and actively engaged throughout. She openly discussed ongoing difficulties in managing symptoms of anxiety including regular intrusive thoughts and ruminations. Client discussed attempting to implement a more consistent morning routine over the weekend which she found was somewhat helpful, however had difficulties in consistently doing so. Client indicated that she found reminding herself not to predict the future and challenge thoughts related to assuming she will experience anxiety and panic. Client additionally indicated that having things to look forward to and being aware of the routine for the day is helpful in preventing from further anxious thoughts. She reflected that this is due to feeling increasingly uncomfortable when unaware of the plan or what she can expect happen. Client identified that she has begun to have increased anxiety regarding upcoming vacation due to fear of struggling to manage anxiety or deal with unexpected schedule changes. Client discussed ongoing anxious thoughts related to concerned that her daughter and sister will be unable to get along. Client indicates feeling increasingly anxious during times in which her supports are not getting along or arguing. She appears to be improving and ability to recognize potential triggers for anxiety and is more consistently applying calming skills when encountering triggers or removing herself from situation. Client did well to work with therapist on identifying potential strategies for addressing concerns with her daughter in order to prevent potential disagreements during vacation. Client additionally able to identify strategies she may utilize if feeling increasingly anxious such as walking away, taking a b reak, reminding herself she does not have to solve the problem, and asserting healthy boundaries regarding not wanting to engage in negative talk or complaining when spending time with sister. Discussed plans to speak with her daughter about developing a plan for upcoming vacation this evening. Risks/Concerns:: No risks or concerns noted. Denies SI, plan, or intent as of this date 12/01/17 Progress Toward Goals/Plan:: Progress noted. Client continues to report consistent application of anxiety management strategies, specifically utilizing internal coping mechanisms on a more regular basis. Client reports increased use of thought challenging, reframing, and positive self talk. She continues to endorse issues with preventing ruminations however has improved ability to effectively challenge and decrease duration of anxiety related symptoms.Will continue in IOP to maintain gains, prevent decompensation, and stabalize mood. Time Stopped:: 13:12
--- NOTE | 2017-12-01 16:50 | BH.MTP_ITS ---
Treatment Plan Review Date of Admission:: 10/26/17 Date of Treatment Plan Review:: 11/27/17 Admitting Diagnoses:: MDD, Anxiety unspecified, PTSD Current Diagnoses:: MDD, Anxiety unspecified, PTSD Patient's Response to Treatment:: Pt has remained an active participant in IOP program. No issues with attendance or tardiness. Reports ongoing motivation to continue to implement tx skills learned. Continues to report issues with ongoing intrusive negative thoughts causing rumination and self-doubt. Client discussed ruminating on past decisions and fear of others knowing her mistakes which impact ability to manage anxiety producing sx. Client continues to experience panic attacks though in decreased frequency/intensity, indicating that these no longer occur daily and are more easily managed. When present, panic sx continue to impact functioning and ability to actively apply treatment skills on a consistent basis. Client has remained medication compliant throughout program attendance. Reports increased use of internal coping skills such as thoughts stopping, reframing, challenging cognitive distortions, DBT components of radical acceptance, and mindfulness. Improvement from previous reliance on distraction as primary means of sx management. Status of Current Problems and Symptoms: Client continues to endorse ongoing sx of anxiety due to difficulties in managing intrusive thoughts and fears resulting in increased rumination and at times panic. Client indicates recognizing an improved ability to identify and challenge these thoughts when they occur, often decreasing the intensity and duration; however continues to struggle with preventing ruminations or managing them on a consistent basis. CLient discussed ruminating on past decisions and fear of others knowing her mistakes, as well as fears of embarrassing herself in public or being judged, which impact ability to manage anxiety producing sx. Reports overall increased self-confidence and is more hopeful and motivated that she will be able to cont inue to improve and managesx. Plan to continue with iop treatment plan goals and focus on continued use of internal copin strategies as well as prevent decompensation, maintain gains, and set up discharge care. Problem #1 Problem Name:: Anxiety, intrusive and ruminating thought, panic Status of Goals:: Pt has been making some progress towards treatment goals. She Can identify 2-3 cognitive distortions resulting in increased anxiety and ruminating thoughts. Client reports these mainly relate to guilt/fear associated with her past, fear of being judged by others or embarrassing self, and not being able to keep up with current responsibilities. Client appears to have increased self-awareness and improved ability challenging irrational thoughts and distortions, though continues to struggle with consistent application in the moment and often cites means of managing anxious thoughts in hindsight. Has not been able to adequately identify specific triggers or warning signs for anxiety . Team Recommendations:: Continue to with current plan as pt is responding well and making progess. Increase focus on preventing crisis escalation. Planned discharge in next 2-3 weeks. Problem #2 Problem Name:: Depression, anhedonia Status of Goals:: Client continues to work on goals, however has not completed both objectives. She reports decreased depression and indicates improved communication with her support, specifically with her . Client continues to reports ongoing difficulties in challenging negative core beliefs that impact self-esteem. She is beginning to practice self-acceptance and more consistently work on challenging negative and self-depricating thoughts. However, client continues to report difficulties in believing positive self-statements and struggles to replace mistaken beliefs. Though client reports improved communication with , she continues to struggle in consistently communicating needs and concerns. Team Recommendations:: Continue to with current plan as pt is responding well and making progess. Increase focus on implementing use of internal coping skills to better challenge and replace negative and mistaken beliefs. Planned discharge in next 2-3 weeks.
--- NOTE | 2017-12-04 09:09 | BH.SGPN.GN ---
Behaviors/Verbalizations/Mental Status: [Client receptive of session, remained alert and orient x3. She was an active participant and increasingly engaged in discussion compared to baseline. Client maintained clear and consistent eye contact throughout. Motor activity appeared appropriate. Appearance was clean, grooming and hygiene well maintained. Speech within normal limits. Mood was calm and reflective, affect euthymic - congruent with mood. Thoughts remained linear and logical, with no present hallucinations or delusions. Therapist reviewed clients symptom tracker to assess for intensity of mental health symptoms and identify risk for suicide. No signs of suicidal ideation, plan, or intent to date.] Client Response/Progress/Benefit: [client responded positively to session and did well to remain engaged throughout. She discussed feeling more in control of her emotions and reactions to anxiety producing thoughts. Client shared that she had made some important connections and realizations in her individual session on Thursday which helped her to more easily begin identifying and challenging distorted thinking patterns. Client discussed that by working on accepting the situation and no longer trying to change what is out of her control has made it easier to manage anxiety producing thoughts. She benefitted from making connections with fellow participants regarding struggling to remain patient with her treatment progress. Client increased ability to implement cognitive restructuring techniques of replacing negative thoughts with alternative positives. Recommended continued IOP tx to promote ongoing consistency of symptom management and application of skills learned, as well as prevent decompensation.] Narrative Note: []
--- NOTE | 2017-12-04 10:10 | BH.SGPN.GN ---
Addendum entered and electronically signed by Mirtha Wren [facility] 12/07/17 11:57: Start time should be corrected to reflect a start time of: 1015 with an end time of 1110. Original Note: Behaviors/Verbalizations/Mental Status: []Pt eye contact good, casually dressed, motor activity appropriate, speech normal rate and tone, mood anxious, congruent affect, thoughts linear and intact, no evidence of delusions or hallucinations. Client Response/Progress/Benefit: []Pt active and engaged throughout group session, listened to others. Pt agreed with peers that personal growth will not just happen by chance, it requires her to put forth the effort to use her skills and supports to see change. Pt identified setting boundaries as an important when it comes to having personal growth because without boundaries she becomes overwhelmed and opens herself up to being taken advantage of. When processing activity pt verbalized anxiety, but was able to utilize self-talk and breathing techniques to keep herself calm and engaged in activity. Pt connected importance of communication and being willing to try new ideas as positive forces that helped group be successful. Pt seemed to benefit from increased awareness of impact of positive and negative forces. Narrative Note: []
--- NOTE | 2017-12-04 11:20 | BH.SGPN.GN ---
Behaviors/Verbalizations/Mental Status: [] Pt eye contact fair, casually dressed, motor activity restless, speech normal rate and tone, mood anxious, congruent affect, thoughts linear and logical, no evidence of delusions or hallucinations. Client Response/Progress/Benefit: [] Client active and engaged throughout group session as evidenced by contributed to discussion and listening attentively to others. Client identified her positive forces to include: Positive support people, setting goals, asking for help, and looking for her improvement in growth that she is . Client reported negative forces that hold her back from progress include: Fear, and willingness to try new things, not taking care of her emotional needs, poor communication, and negative attitude. Client identified fear is the force in her life that currently impacts her the most because she recognizes fear holds her back from trying new things and moving forward towards progress. Client recognizes she has made a lot of progress since the time starting IOP but realizes she needs to continue to work on increasing her positive forces in her life. Client seemed benefit from increased awareness of her positive forces as well as thinking about what she can do to improve stability and continue to move forward. Narrative Note: []
--- NOTE | 2017-12-14 09:05 | BH.SGPN.GN ---
Behaviors/Verbalizations/Mental Status: [Client maintained consistent eye contact, casually dressed, motor activity within normal limits, speech normal rate and tone, mood euthymic,anxious expressed as a little anxious, affect congruent, thoughts linear and logical, no evidence of delusions or hallucinations. Therapist reviewed clients symptom tracker to assess for intensity of mental health symptoms and identify risk for suicide. No signs of suicidal ideation, plan, or intent to date.] Client Response/Progress/Benefit: [Client responded well to session and able to provide encouragement and input to the group. She shared feeling a little anxious today as she has just returned from vacation and always feels a little more anxious following a trip. CLient went on to share trying to break things down and only focus on what she needs to be doing right now. CLient rather than everything that she needs to get caught up on. Client benefitted from processing with the group frustration regarding her daughter's lack of engagement with the family during the trip and feeling judged by her sister for how she had managed the situation. Client responded well to the feedback and suggestions provided. She indicated that she had been proud of her ability to step back and ask herself what about the situation was in her countrol. Client displaying increased confidence levels and indicates decreased rumination. She is recommended continued IOP tx to increase consistency of skill application and prevent decompensation. ] Narrative Note: []
--- NOTE | 2017-12-14 10:35 | BH.SGPN.GN ---
Behaviors/Verbalizations/Mental Status: []Client alert and oriented, neatly dressed and groomed. Eye contact good. Motor activity appropriate. Speech within normal limits. Affect congruent-smiling and laughing, mood euthymic. Thoughts linear, logical, no signs of hallucinations or delusions. Client Response/Progress/Benefit: []Client responded well to session, active participant. Client appeared to connect to the quote sharing, our emotions make something seem impossible. Client stated she used to think managing her anxiety was impossible and did not think IOP would help, however, client recognizes she has improved with managing her anxiety, so its not impossible. Client reported having an impossible mindset can keep someone from taking steps to make changes which can negative impact mental health. Client participated in the activity, providing feedback and positive support. Client shared having done this activity before it was interesting to see that there is more than one strategy to solving the problem, which client connected with overcoming impossible situations in life. Client appeared to benefit from recognizing the consequences of viewing situations as impossible and practicing overcoming an impossible situation. Client progressing as shown by her report of reduced negative thinking, but can continue to benefit from IOP to promote mood stability.
--- NOTE | 2017-12-14 11:32 | BH.SGPN.GN ---
Behaviors/Verbalizations/Mental Status: []Client alert and oriented, neatly dressed and groomed. Eye contact good. Motor activity appropriate. Speech within normal limits. Affect constricted, mood euthymic. Thoughts linear, logical, no signs of hallucinations or delusions Client Response/Progress/Benefit: []Client responded well to session, active participant. Client appeared to connect with growth versus fixed mindset and provided examples for each. Client helped the group process the benefits of growth mindset and identify strategies to obtain a grow mindset when faced with challenges. Client identified going back to school at 32 as something client thought would be impossible, but she was able to accomplish. Client stated when she looks back at this accomplishment it makes her feel more positive about overcoming difficult situations in the future. Client able to identify internal and external resources that can help client overcome current barriers of boundaries and negative thinking such as thought challenging and self-awareness. Client appeared to benefit from learning about growth mindset and increasing awareness of internal and external resources that may help client overcome current barriers. Client has progressed as evidenced by her report of generalizing healthy coping skills, but client can continue to benefit from mood stability and setting boundaries to manage stress.
--- NOTE | 2017-12-14 16:20 | BH.MDN ---
Multi-Disciplinary Note - Note 60-min Individual Time Started:: 12:25 Date: 12/14/17 Purpose of session/treatment goals addressed:: The purpose of this session was to check-in with Client regarding current sx, stressors, and treatment goal progress. Another purpose was to discuss with client strategies for improving effective communication with supports and family in order to improve ability to establish and maintain healthy boundaries. Eye Contact:: Good Motor Activity:: Appropriate Appearance:: Casual Speech:: Appropriate Mood:: Euthymic, Anxious Affect:: Congruent Thoughts:: Linear, Logical, No evidence of hallucinations/delusions noted Staff Interventions:: Therapist used open-ended questions to explore client's current stressors and concerns, as well as review continued areas of tx progress. Commended Client for current progress with challenging distorted thinking patterns and implementing more consistent use of thought challenging and coping skills identified. Therapist provided psychoeducation regarding boundary setting and effective communication strategies as well as worked with client on identifying strategies for improving current communication strategies with current supports. Provided client with contact information for Providers for [facility] to begin discharge planning, schedule an intake assessment, and get additional information regarding the DBT group to begin next month. Client Response:: Client responded well to session, actively engaged throughout. She shared feeling glad to be back in group but somewhat more depressed and anxious now that she has returned from vacation. Client noted that increased anxiety is common for her upon returning from a trip as she often begins worrying about everything she has to get accomplished now. CLient receptive of discussing breaking things down into smaller tasks. She went on to reflect upon her recent trip and shared that she had been looking forward to sharing time with her family but was upset that her daughter had spent a large duration of the trip off with firends. Client indicated that she struggled with knowing how to communicate with her daughter without coming across as mean or not respecting that she is an adult now while also dealing with pressure from her sister to do something about the situation. Client inidcated she has been struggling to be a positive support for her daughter without enabling her. She responded well to discussion regarding effective communcation strategies such as putting herself in her daughter's shoes or providing her daughter with positive feedback and encouraging healthy behaviors. Client discussed ongoing issues with comparing herself to others and not wanting to make anyone mad or feeling she has to justify herself when telling someone no. She and therapist processed various scenarios in which Client could assert healthy boundaries by using effective and assertive communication skills discussed. CLient additionally discussed not knowing how to respond when something does not go as planned or if someone responds to her in a way she did not anticipate. Client and therapist reviewed the importance of taking a step back to process or gather more information in order to create an alternative plan of action. Client expressed plans to have a discussion with her daughter regarding ways they can begin improving their communication with one another. Risks/Concerns:: Denies any suicidal ideations, plan, or intent as of 12/14/17. No risks of concerns noted. Progress Toward Goals/Plan:: Client displaying progress in her ability to manage symptoms of anxiety. Client identified increased ability to identify what worries are outside of her control as well as practice radical acceptance in dealing with change. CLient notes ongoing issues with negative self-esteem and poor boundaries with her supports. She shared that she has been able to identify what boundaries would be helpful and why however has difficulties when trying to communicate these needs due to feeling guilty or as though this makes her a bad mother. Client has made consistent strides in using healthy distrations as a means for managing and decreasing ruminative thoughts. Current plan is to remain in IOP tx until 12/25 to continue to make progress in challengig and replacing distorted thinking patterns as well as complete an aftercare anxiety management plan, and set up aftercare services with providers for healthy living. Time Stopped:: 13:35
--- NOTE | 2017-12-24 11:17 | BH.SGPN.GN ---
Behaviors/Verbalizations/Mental Status: [Client maintained good, consistent eye contact throughout, casually dressed, grooming/hygiene well maintained, motor activity was appropriate, speech normal rate and tone, mood euthymic, anxious, affect congruent with mood, thoughts linear and logical - able to make connections with content discussed, no evidence of delusions or hallucinations.] Client Response/Progress/Benefit: [Client again did well to remain actively engaged in the group discussion. She expresses specifically connecting with the psychoeducation portion reviewing the emotional energy matrix. Client benefitted from discussing factors that may contribute to her struggling to prevent maintaining a heightened state of alertness. Client expressed connecting with how rumination and fear of experiencing panic may only maintain her anxieties or further escalate them. Client appears increasingly able to identify hopeful strategies for easing her anxieties and challenging distorted thinking patterns when recognizing she is in the yellow zone as well as necessary skills for maintaining baseline and preventing anxiety escalation. Client to discharge from IOP program on this date and is recommended to continue working on anxiety management and skill application in individual therapy on outpatient basis. ] Narrative Note: []
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
== END 2017-12-15 23:59 ==
LOC: BHIOP 09:00
PROVIDERS: Visit Provider Psychiatry & Neurology Psychiatry
DX: F33.1 Major depressive disorder, recurrent, moderate (principal); F41.9 Anxiety disorder, unspecified; F43.10 Post-traumatic stress disorder, unspecified
CPT/HCPCS: H0035; 90834; 90837; 90853

== ENCOUNTER 2017-12-18 09:00 | Outpatient (RCR) | payer BC, SELFPAY ==
--- NOTE | 2017-12-18 09:05 | BH.SGPN.GN ---
Behaviors/Verbalizations/Mental Status: []Client alert and oriented, neatly dressed and groomed. Eye contact good. Motor activity appropriate. Speech within normal limits. Affect full, mood euthymic. Thoughts linear, logical, no signs of hallucinations or delusions. Reviewed clients symptom tracker, no risk for suicidal ideation, plan, or intent as of 12/18/17. Client Response/Progress/Benefit: []Client responded well to session, engaged in discussion and providing insight. Client reports feeling hopeful today because coping skills are finally starting to work for me. Client shared she has tried many techniques to manage her anxiety and negative thinking, but in the past nothing has worked. Client reported challenging her negative thoughts and self-talk have been most helpful. Client identified her positives as being able to go to an appointment with her dad without getting super anxious and using thought challenging to prevent catastrophizing yesterday. Client shared she continues to struggling with implementing coping skills at times, but client reports belief healthy coping is becoming more of a habit. Client appeared to benefit from reflecting on progress and gaining praise from group. Progress noted as evidenced by clients report of improved mood and active use of coping skills. Client to continue IOP to promote gains and increase coping skill consistency.
--- NOTE | 2017-12-18 10:18 | BH.SGPN.GN ---
Behaviors/Verbalizations/Mental Status: [Client alert and orient x3. She maintained good, consistent eye contact throughout. She was casually dressed, motor activity restless - often moving around in seat, speech normal rate and tone, mood euthymic, anxious - at times appearing distracted by her own thoughts or to be holding back during discussion. Congruent affect, thoughts linear and logical - at times thoughts appearing consistent with ruminative anxiety, no evidence of delusions or hallucinations.] Client Response/Progress/Benefit: [Client responded well to session, actively engaged throughout. She did well to provide input to the group and worked with fellow participants to identify the merits of setting individual goals and how goals can promote mental health. Client identified that setting goals gives you something to work towards and can keep you on track. She appeared to benefit from the education piece describing SMART goal criteria and indicated connecting with the attainable component as Client shared often talking herself out of things or taking on too much at once. Client took on a leadership role during the activity portion and worked with the group to apply SMART goal criteria to the activity as well as apply creative problem solving strategies in oder to order improve the likelihood they reach their goal. Client displaying progress in her ability to connect treatment concepts to her daily life and better manage sx of anxiety. Client recommended continued IOP tx to maintain stability and further improve ability to consistently manage mental health sx.] Narrative Note: []
--- NOTE | 2017-12-18 11:27 | BH.SGPN.GN ---
Behaviors/Verbalizations/Mental Status: [Client alert and orient x3, maintained consistent eye contact throughout, casually dressed, motor activity appropriate. Speech was normal rate and tone, mood anxious and euthymic, congruent affect, thoughts linear and logical, no evidence of delusions or hallucinations.] Client Response/Progress/Benefit: [Responded well to session and actively engaged participant throughout. Light receptive of working in small groups on processing the various potential barriers to setting goals as well as identifying personal goals for improving mental health to management over this weekend. Client indicated her personal goal would be to say 2-3 affirmations each day for a week in order to reduce symptoms of anxiety and irritability. Client benefited from identifying potential benefits accomplishing the school may have on continuing progress towards mental health treatment goals. She indicated that achieving this goal would help to challenge her thoughts and improve awareness of how often she utilizes negative thinking patterns. Slight progress in her ability to identify additional supports that may aid in successful goal completion. Recommended continued IOP treatment in order to maintain current gains and stability, as well as reinforce application of healthy skills identified for management of anxiety and rumination. ] Narrative Note: []
--- NOTE | 2017-12-18 13:45 | PCM.PN.BLA ---
Progress Note Patient is seen in follow-up for major depressive disorder recurrent moderate F 33.1, anxiety unspecified, PTSD. History has been obtained per interview with patient, discussion with staff, review of chart. Case discussed with treatment team. Chief complaint-depression and anxiety Better than when I started. Interim history Mild to moderate depressive symptoms persist but of decreased intensity over the past 3 weeks. Attributes improvement to coping skills gained through IOP. Reports she is thought challenging. Decreased negative thinking. Decreased negative self judgments. Continued ruminating thoughts but now I have more tools. Reports ongoing ruminative anxiety but overall of decreased intensity. Denies panic attacks. No suicidal or homicidal ideation. No symptoms consistent with psychosis. Sleeping from 10:30 PM until 6 or 7 AM. Appetite normal. Denies nausea vomiting or diarrhea. Consuming 2 caffeinated sodas daily. Denies ingestion of alcohol or use of illicit drugs. Compliant with Celexa 20 mg daily. Has not needed Xanax. Has used Atarax only once. Mental status exam Alert and oriented . No acute distress. Ambulatory with normal gait and station. Appears stated age. Casually dressed and groomed. Appropriate hygiene. Cooperative with interview. Good eye contact. No psychomotor agitation or retardation. Mood depressed improved. Affect congruent. Speech is clear and with regular rate and rhythm. Language fluent. Thought process organized. Associations logical. Thought content significant for ruminative anxiety and themes of depression. No suicidal or homicidal ideation related or detected. No symptoms consistent with psychosis noted or detected. Immediate recent and remote memory grossly intact. Attention and concentration are fair. Estimated intelligence and fund of knowledge average. Judgment and insight improving. Labs and testing TSH normal August 2017. Diagnosis Major depressive disorder recurrent moderate F 33.1 Anxiety unspecified PTSD Plan Continue IOP as the structured setting is necessary to maintain gains and prevent decompensation. Patient will likely benefit from ongoing IOP treatment. Risks benefits alternatives of medications discussed with patient. Patient acknowledges understanding. Continue Celexa 20 mg daily. Continue trazodone 50 mg nightly. Continue Atarax 25 mg p.o. daily as needed for anxiety. Encouraged decreased caffeine use. Encouraged to follow-up for providers for healthy living. 18 minutes of Insight oriented psychotherapy provided. Discussed cope ahead skills. Patient acknowledges understanding and is in agreement with plan. Feels able to maintain safety. Agrees to seek help or emergency care if feeling unsafe to self or others.
--- NOTE | 2017-12-24 09:05 | BH.SGPN.GN ---
Behaviors/Verbalizations/Mental Status: []Client alert and oriented, neatly dressed and groomed. Eye contact good. Motor activity appropriate. Speech within normal limits. Affect congruent, mood euthymic,anxious. Thoughts linear, logical, no signs of hallucinations or delusions. Reviewed clients symptom tracker, no risk for suicidal ideation, plan, or intent as of 12/24/17. Client Response/Progress/Benefit: []Client responded well to session, providing supportive statements and coping skills to peers. Client reports feeling a little anxious but hopeful today as client is getting ready to discharge from [facility]. Client acknowledged the progress she has made with challenging negative thoughts, not catastrophizing, and using healthy coping skills to prevent panic. Client stated, I just worry I'll forget what I learned this place is like a safety net. With therapist and group feedback, client identified reasons why she will be able to maintain progress and continue using skills such as reading her notes and practicing daily. Client reports plan to continue with outpatient counseling and will advocate for herself by telling her new therapist the techniques and strategies that helped client in [facility]. Client appeared to benefit from reflecting on progress and processing anxiety. Client has made significant progress towards treatment goals and will discharge tomorrow 12/25/17.
--- NOTE | 2017-12-24 10:15 | BH.SGPN.GN ---
Behaviors/Verbalizations/Mental Status: [Client maintained good, consistent eye contact throughout, casually dressed - appearance well kempt, motor activity was appropriate, client mood was anxious, euthymic, affect bright, speech normal rate and tone, thoughts logical and linear, no evidence of delusions or hallucinations.] Client Response/Progress/Benefit: [Client responded well to session, actively engaged in both the discussion and activity portions of session. She indicated connecting with conversation discussing various factors that may contribute to struggling to maintain healthy emotion regulation. CLient indicated that for her rumination and unrealistic expectations of herself can cause increased anxiety and ultimately lead to client experiencing increased depression as well. Client appeared to benefit from the activity in which participants were given a prompt in which they were challenged to regulate their own emotions and stress response while attempting to communicate with other participants. CLient did well to identify ways in which the barriers in activity may relate to difficulties in preventing a negative stress response in daily life. CLient displaying progress in her ability to more easily identify potential healthy means for overcoming and managing identified barriers and setbacks. CLient has made significant progress in her ability to better manage symptoms of anxiety and depression and is to discharge from IOP program on this date. Recommended continued focus on challenging distorted thinking patterns in outpatient therapy.] Narrative Note: []
--- NOTE | 2017-12-24 14:18 | BH.MDN ---
Multi-Disciplinary Note - Note 60-min Individual Time Started:: 12:25 Date: 12/24/17 Purpose of session/treatment goals addressed:: The purpose of this session was to review client's progress and areas of personal growth, discuss ways for client to continue to advocate for her needs post discharge , and review strategies that will continue to promote mood stability and gains made in IOP. Another goal was to discuss aftercare and discharge recommendations. Eye Contact:: Good Motor Activity:: Appropriate Appearance:: Casual Speech:: Appropriate Mood:: Euthymic, Anxious Affect:: Full, Bright Thoughts:: Linear, Logical, No evidence of hallucinations/delusions noted Staff Interventions:: Therapist asked open-ended and furthering questions to explore areas of progress and determine client's perspective regarding personal progress. Therapist reviewed with Client the anxiety Maintenance Cycle and aided in identifying strategies, warning signs, and coping skills with client to promote ongoing symptom management and prevent setbacks. Therapist discussed aftercare plan with client and provided encouragement as Client discussed anxieties regarding working with a new therapist. Used strengths-perspective to empower client on her ability to advocate for herself and celebrate the successful accomplishment of treatment goals. Client Response:: Client receptive of meeting with this therapist following IOP group session to discuss areas of treatment progress, discharge, and review strategies for client to maintain gains following ablation of IOP program on 12/25/2017. Client indicated feeling both excited yet nervous about her future and her ability to manage symptoms of anxiety now that she is completing the IOP program. She indicated that she feels she has made progress in her ability to think more rationally and flexibly how her worries. Client went on to share identifying significant decreases in her levels of anxiety and rumination. She shared feeling as though she is increasingly able to ask herself what are the benefits of thinking about this right now and is this something I need to be spending my energy on?. Client additionally identified increased levels of self-confidence and ability to advocate for her own needs and communicate with supports. She discussed that she is now able to look at situations objectively rather than personalize the other person's reaction which has helped to decrease levels of anxiety and improve communication with supports. Client did well to identify potential warning signs to look out for and indicated that increased levels of rumination and avoiding doing things or feeling out of control are her biggest signs she is not doing well. She worked with this therapist to identify strategies for maintaining gains made in preventing sensation. Client identified that she would like to continue reviewing the information in her treatment binder discussing coping skills, goals, and thought challenging strategies. She additionally indicated that the most helpful interventions include complaining a cost/benefit analysis of her thoughts (I.e. What is the cost of thinking about this right now versus the benefits), practicing grounding strategies specifically the 5 senses intervention, attending regular counseling, and doing her yoga Papi at least 3 times a week. Client went on to discuss feeling somewhat nervous and afraid that she is going to fall back into old ways however did well to challenge these thoughts and identify evidence for and against them. She worked with this therapist on identifying how she may communicate what she needs with her new therapist and supports in order to best maintain gains made. Client is to begin counseling services on an outpatient basis with Jeanette Kay at [facility]. Risks/Concerns:: No risks or concerns to document at this time. Client denies suicidal ideation, plan, and intent as of 12/24/17. 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 Progress Toward Goals/Plan:: Client has made significant progress towards her treatment goals as evidenced by her observable and reported improved management of sx and increased level of functioning. At discharge client stated she has increased her ability to challenge ruminations, gained control of her thoughts and emotions by using thought challenging techniques, gained insights into her own mental health needs and warning signs, reduced anxiety, and decreased use of personalization. Client to discharge from [facility] tomorrow 12/25/17 to complete discharge planning and as she no longer meets the criteria for [facility] level of care. Client to follow up with Jeanette Kay at [facility] for outpatient counseling, appointment scheduled for 12/31/17.
--- NOTE | 2017-12-24 14:42 | BH.MDN_ITS ---
Multi-Disciplinary Note - Note 60-min Individual Time Started:: 12:25 Date: 12/24/17 Purpose of session/treatment goals addressed:: The purpose of this session was to review client's progress and areas of personal growth, discuss ways for client to continue to advocate for her needs post discharge , and review strategies that will continue to promote mood stability and gains made in IOP. Another goal was to discuss aftercare and discharge recommendations. Eye Contact:: Good Motor Activity:: Appropriate Appearance:: Casual Speech:: Appropriate Mood:: Euthymic, Anxious Affect:: Full, Bright Thoughts:: Linear, Logical, No evidence of hallucinations/delusions noted Staff Interventions:: Therapist asked open-ended and furthering questions to explore areas of progress and determine client's perspective regarding personal progress. Therapist reviewed with Client the anxiety Maintenance Cycle and aided in identifying strategies, warning signs, and coping skills with client to promote ongoing symptom management and prevent setbacks. Therapist discussed aftercare plan with client and provided encouragement as Client discussed anxieties regarding working with a new therapist. Used strengths-perspective to empower client on her ability to advocate for herself and celebrate the successful accomplishment of treatment goals. Client Response:: Client receptive of meeting with this therapist following IOP group session to discuss areas of treatment progress, discharge, and review strategies for client to maintain gains following ablation of IOP program on 02/2018. Client indicated feeling both excited yet nervous about her future and her ability to manage symptoms of anxiety now that she is completing the IOP program. She indicated that she feels she has made progress in her ability to think more rationally and flexibly how her worries. Client went on to share identifying significant decreases in her levels of anxiety and rumination. She shared feeling as though she is increasingly able to ask herself what are the benefits of thinking about this right now and is this something I need to be spending my energy on?. Client additionally identified increased levels of self-confidence and ability to advocate for her own needs and communicate with supports. She discussed that she is now able to look at situations objectively rather than personalize the other person's reaction which has helped to decrease levels of anxiety and improve communication with supports. Client did well to identify potential warning signs to look out for and indicated that increased levels of rumination and avoiding doing things or feeling out of control are her biggest signs she is not doing well. She worked with this therapist to identify strategies for maintaining gains made in preventing sensation. Client identified that she would like to continue reviewing the information in her treatment binder discussing coping skills, goals, and thought challenging strategies. She additionally indicated that the most helpful interventions include complaining a cost/benefit analysis of her thoughts (I.e. What is the cost of thinking about this right now versus the benefits), practicing grounding strategies specifically the 5 senses intervention, attending regular counseling, and doing her yoga Papi at least 3 times a week. Client went on to discuss feeling somewhat nervous and afraid that she is going to fall back into old ways however did well to challenge these thoughts and identify evidence for and against them. She worked with this therapist on identifying how she may communicate what she needs with her new therapist and supports in order to best maintain gains made. Client is to begin counseling services on an outpatient basis with Jeanette Kay at [facility] [employer] [facility]. Risks/Concerns:: No risks or concerns to document at this time. Client denies suicidal ideation, plan, and intent as of 12/24/17. 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 Progress Toward Goals/Plan:: Client has made significant progress towards her treatment goals as evidenced by her observable and reported improved management of sx and increased level of functioning. At discharge client stated she has increased her ability to challenge ruminations, gained control of her thoughts and emotions by using thought challenging techniques, gained insights into her own mental health needs and warning signs, reduced anxiety, and decreased use of personalization. Client to discharge from [facility] tomorrow 12/25/17 to complete discharge planning and as she no longer meets the criteria for [facility] level of care. Client to follow up with Jeanette Kay at [facility] for outpatient counseling, appointment scheduled for 12/31/17.
--- NOTE | 2017-12-24 14:52 | BH.AFTERPLAN ---
Aftercare Plan - Demographics Treatment End Date:: 12/25/17 Psychiatrist:: Meena Gong Psychiatrist Office #:: [phone] [facility] Therapist:: Rosie Han Therapist Phone #:: [phone] - Medications Home Medications: Home Medications alprazolam 0.5 mg tablet 0.5 mg PO BID PRN #30 tab 07/06/17 levonorgestrel-ethinyl estradiol 0.1 mg-20 mcg tablet 1 tab PO QDAY #28 tab 07/08/17 Citalopram Hydrobromide [Celexa] 20 mg PO DAILY 11/27/17 Hydroxyzine Pamoate [Vistaril] 25 - 50 mg PO DAILY PRN 11/27/17 - Plan Details Progress/Aftercare Plan Details:: Since beginning the [facility] tx program, Amy has made significant progress in her ability to identify and manage her symptoms of anxiety and rumination. She reports improvements in her daily functioning and confidence levels, as well as an increased ability to to back control over her thoughts and feelings. Amy has shown that she really takes maintaining her mental health and functioning seriously and has done well to make this a priority in her daily life through the use of effective thought challenging and reframing strategies. She has made observable progress in her ability to identify distorted or anxious thinking patterns and use reflections and problem-solving techniques to look at things in a more realistic way. She has discussed using mindfulness and grounding techniques to better regulate her emotions and prevent worries from escalating to the point of panic or crisis. She indicates that although she continues to have worries and at times struggles with personalizing things outside of her control, she feels better equipped to cope during these times and is able to return to baseline quicker. Amy has displayed consistent application of the treatment skills learned via use of calming and self-care strategies, improved communication with supports, and active thought challenging and mood tracking, as well as reports feeling she is more aware of her anxiety maintenance behaviors and negative thoughts which she believes has aided in her ability to challenge and cope with them. Amy has been an asset to the program and is a great example of the benefits consistent hard work and believing in yourself can have on maintaining and achieving progress! Good luck Amy! Strategies for Success:: 1. Check in with yourself regularly! Ask yourself: However my doing? MA maintaining a healthy cycle or the anxiety maintenance cycle? 2. Communicate, communicate, communicate with your supports and yourself!-U supports can help you or change her behaviors if you do not let them know what you need. 3. REMEMBER to weigh the pros/cons! If you have a negative thoughts ask yourself: Is this worth my time and energy right now? What is the cost of thinking about this versus the benefits? And can and come back to this later? 4. Advocate for yourself and remember to make sure you are maintaining healthy balance. Overwhelming himself also adds to additional worries and can lead to increased rumination. 5. Look back on past successes and celebrate your accomplishments! 6. Practice the skills he learned! Are you using your grounding strategies, practicing the 5 senses, using your yoga luis? 7. Challenge self-doubt and remind yourself that you can do this! - Appointments Appointments/Referrals to Other Services:: Client to follow up with Jeanette Kay for outpatient counseling, appointment scheduled for 12/31/17 and Karen Velásquez at [facility] for ongoing medication management.
--- NOTE | 2017-12-24 14:57 | BH.IGGP_ITS ---
Aftercare Plan - Demographics Treatment End Date:: 12/25/17 Psychiatrist:: Meena Gong Psychiatrist Office #:: [phone] [facility] Therapist:: Rosie Han Therapist Phone #:: [phone] - Medications Home Medications: Home Medications alprazolam 0.5 mg tablet 0.5 mg PO BID PRN #30 tab 07/06/17 levonorgestrel-ethinyl estradiol 0.1 mg-20 mcg tablet 1 tab PO QDAY #28 tab Citalopram Hydrobromide [Celexa] 20 mg PO DAILY 11/27/17 Hydroxyzine Pamoate [Vistaril] 25 - 50 mg PO DAILY PRN 11/27/17 - Plan Details Progress/Aftercare Plan Details:: Since beginning the [facility] tx program, Amy has made significant progress in her ability to identify and manage her symptoms of anxiety and rumination. She reports improvements in her daily functioning and confidence levels, as well as an increased ability to to back control over her thoughts and feelings. Amy has shown that she really takes maintaining her mental health and functioning seriously and has done well to make this a priority in her daily life through the use of effective thought challenging and reframing strategies. She has made observable progress in her ability to identify distorted or anxious thinking patterns and use reflections and problem- solving techniques to look at things in a more realistic way. She has discussed using mindfulness and grounding techniques to better regulate her emotions and prevent worries from escalating to the point of panic or crisis. She indicates that although she continues to have worries and at times struggles with personalizing things outside of her control, she feels better equipped to cope during these times and is able to return to baseline quicker. Amy has displayed consistent application of the treatment skills learned via use of calming and self-care strategies, improved communication with supports, and active thought challenging and mood tracking, as well as reports feeling she is more aware of her anxiety maintenance behaviors and negative thoughts which she believes has aided in her ability to challenge and cope with them. Amy has been an asset to the program and is a great example of the benefits consistent hard work and believing in yourself can have on maintaining and achieving progress! Good luck Amy! Strategies for Success:: 1. Check in with yourself regularly! Ask yourself: However my doing? MA maintaining a healthy cycle or the anxiety maintenance cycle? 2. Communicate, communicate, communicate with your supports and yourself!-U supports can help you or change her behaviors if you do not let them know what you need. 3. REMEMBER to weigh the pros/cons! If you have a negative thoughts ask yourself: Is this worth my time and energy right now? What is the cost of thinking about this versus the benefits? And can and come back to this later? 4. Advocate for yourself and remember to make sure you are maintaining healthy balance. Overwhelming himself also adds to additional worries and can lead to increased rumination. 5. Look back on past successes and celebrate your accomplishments! 6. Practice the skills he learned! Are you using your grounding strategies, practicing the 5 senses, using your yoga luis? 7. Challenge self-doubt and remind yourself that you can do this! - Appointments Appointments/Referrals to Other Services:: Client to follow up with Jeanette Kay for outpatient counseling, appointment scheduled for 12/31/17 and Karen Velásquez at [facility] for ongoing medication management.
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
--- NOTE | 2017-12-25 09:06 | BH.SGPN.GN ---
Behaviors/Verbalizations/Mental Status: [] Pt eye contact good, casually dressed, motor activity appropriate, speech normal rate and tone, mood euthymic, congruent affect, thoughts linear and intact, no evidence of delusions or hallucinations. Reviewed client?s symptom tracker, no signs of suicidal ideation, plan, or intent as of today. Client Response/Progress/Benefit: [] Client reported she is a little anxious today because it is her last day in the IOP program. Client shared for her at a lot of change of going from group treatment to a counselor once a week. Client shared she has been worrying about being able to maintain the progress once she is discharged. Client able to note the progress she has made since starting the IOP program and is more confident in her ability to manage stressors and her symptoms on her own. Client seemed to benefit from support from peers and identifying the progress she has made. Client has demonstrated progress with decreased anxiety, decreased depression, increased awareness of her negative and unhelpful thought patterns, and more consistent use of her healthy coping strategies. Plan is for client to discharge from IOP program today due to no longer meeting medical necessity of this level of care. Narrative Note: []
--- NOTE | 2017-12-25 10:23 | BH.SGPN.GN ---
Behaviors/Verbalizations/Mental Status: []Client alert and oriented, neatly dressed and groomed. Eye contact good. Motor activity appropriate. Speech within normal limits. Affect congruent, mood euthymic. Thoughts linear, logical, no signs of hallucinations or delusions. Client Response/Progress/Benefit: []Client responded well to session, active participant. Client connected with the quote sharing boundaries are good, but they are really hard to make. Client stated she has improved with setting boundaries, but continues to struggle with it as client does not like confrontation. Client reported other barriers to setting healthy boundaries such catastrophizing, having to reinforce, and fear of hurting others. Client identified potential benefits of boundaries such communicating values and needs, self-care, and improved self-esteem. Client helped the group discuss the different types of boundaries, porous, rigid, and flexible as well as the pros and cons to each. Client identified using porous boundaries, Im getting better but I still have a hard time saying no to people. Client reported porous boundaries impact clients mental health because it leads to feeling overwhelmed and frustrated. Client appeared to benefit from learning how boundaries impact mental health and identifying her boundary type. Client to discharge from [facility] today as she has demonstrated significant progress towards treatment goals.
--- NOTE | 2017-12-25 11:21 | BH.SGPN.GN ---
Behaviors/Verbalizations/Mental Status: []Client alert and oriented, neatly dressed and groomed. Eye contact good. Motor activity appropriate. Speech within normal limits. Affect full, mood euthymic. Thoughts linear, logical, no signs of hallucinations or delusions. Client Response/Progress/Benefit: []Client responded well to session, active participant. Client created a visual representation of her boundaries. Client shared she continues to struggle at times with setting boundaries, but has seen progress with not overcommitting herself. Client shared in the past she would say yes to everything and then would feel overwhelmed at home and work. Client reported I have a little more control of how I let in and what I take on, but I want to improve that. Client receptive to learning ways to set healthy boundaries such as reminding herself of the long-term benefits and challenging negative thoughts. Client set a daily goal to promote boundary setting which was to communicate her boundaries this weekend. Client appeared to benefit from learning how to set healthy boundaries. Client to discharge from [facility].
== END 2017-12-25 14:00 | disposition home or self-care (01) ==
LOC: BHIOP 09:00
PROVIDERS: Visit Provider Psychiatry & Neurology Psychiatry
DX: F33.1 Major depressive disorder, recurrent, moderate (principal); F41.9 Anxiety disorder, unspecified; F43.10 Post-traumatic stress disorder, unspecified
CPT/HCPCS: H0035; 90837; 90853

== ENCOUNTER → 2018-09-02 | Outpatient (CLI) | payer BC, SELFPAY ==
[2018-08-31 14:26] VITALS: BMI 38.9
--- NOTE | 2018-09-02 14:58 | BI_ITS ---
MAMMOGRAPHY - BILATERAL SCREENING REASON FOR EXAM: Female, 48 years old. Routine annual screening examination. PERTINENT HISTORY: Non-contributory. TECHNIQUE: Digital bilateral breast cedric (3D mammographic acquisition) in the CC and MLO projections. 2-D mediolateral oblique (MLO) and craniocaudad (CC) views of both breasts were obtained. CAD: Full Field Digital Mammography with Computer Added Detection was performed. COMPARISON: Comparison is made with prior study dated June 04, 2017 and August 11, 2012. FINDINGS: Breast Composition: There are scattered areas of fibroglandular density. There are no dominant masses or suspicious calcifications. Stable benign-appearing bilateral axillary lymph nodes. No other significant abnormalities are identified. There has been no significant change since the prior study. BI/SCREENING MAMM (CAD), BILAT IMPRESSION: Stable bilateral screening mammogram. Yearly follow-up mammogram recommended. (A) ASSESSMENT CATEGORY: BIRADS Category 2: Benign. A letter regarding these results will be sent to the patient by the facility within 30 days. Approximately 10% of breast cancers are not detected by mammography. A normal mammogram should not delay biopsy of a clinically suspicious abnormality. [id number] Electronically Signed: Charles Warren, at 12:55 EDT , Service support ,
== END | disposition home or self-care (01) ==
LOC: OPBI 14:46
PROVIDERS: PCP Family Medicine; Visit Provider Obstetrics & Gynecology
DX: Z12.31 Encounter for screening mammogram for malignant neoplasm of breast (principal)
CPT/HCPCS: 77062; 77063; 77067; G0279

== ENCOUNTER → 2019-09-24 | Outpatient (CLI) | payer OTHER, SELFPAY ==
[2019-09-24 10:33] VITALS: BMI 38.9
[2019-09-28 15:57] LABS: HPV APTIMA, High Risk Negative (Negative)
== END | disposition home or self-care (01) ==
PROVIDERS: PCP Family Medicine; Referring Provider Obstetrics & Gynecology; Visit Provider Obstetrics & Gynecology
DX: Z12.4 Encounter for screening for malignant neoplasm of cervix (principal)
CPT/HCPCS: 87624; 88175; G0145

== ENCOUNTER → 2020-10-23 | Outpatient (CLI) | payer OTHER, SELFPAY ==
[2020-10-23 16:09] VITALS: BMI 38.9
== END | disposition home or self-care (01) ==
LOC: LABSPEC 17:11
PROVIDERS: PCP Family Medicine; Visit Provider Obstetrics & Gynecology
DX: N89.8 Other specified noninflammatory disorders of vagina (principal)
CPT/HCPCS: 87070; 87205

== ENCOUNTER → 2020-10-31 15:41 | Outpatient (CLI) | payer OTHER, SELFPAY ==
[2020-10-23 16:09] VITALS: BMI 38.9
--- NOTE | 2020-10-31 15:43 | BI_ITS ---
MAMMOGRAPHY - BILATERAL SCREENING REASON FOR EXAM: Female, 50 years old. Routine annual screening examination. PERTINENT HISTORY: Non-contributory. TECHNIQUE: Digital bilateral breast mansi (3D mammographic acquisition) in the CC and MLO projections. 2-D mediolateral oblique (MLO) and craniocaudad (CC) views of both breasts were obtained. CAD: Full Field Digital Mammography with Computer Added Detection was performed. COMPARISON: Comparison is made with prior study dated 09/02/2018 and 06/04/2017. FINDINGS: Breast Composition: There are scattered areas of fibroglandular density. There are no dominant masses or suspicious calcifications. Stable benign-appearing bilateral axillary lymph nodes. No other significant abnormalities are identified. There has been no significant change since the prior study. BI/SCRN MAMM (CAD)W/MANSI BILAT IMPRESSION: Stable bilateral screening mammogram. Yearly follow-up mammogram recommended. (A) ASSESSMENT CATEGORY: BIRADS Category 2: Benign. A letter regarding these results will be sent to the patient by the facility within 30 days. Approximately 10% of breast cancers are not detected by mammography. A normal mammogram should not delay biopsy of a clinically suspicious abnormality. [id number] Electronically Signed: Charles Warren MD at 8:40 EDT , Service support ,
== END ==
PROVIDERS: PCP Family Medicine; Referring Provider Obstetrics & Gynecology; Visit Provider Obstetrics & Gynecology
DX: Z12.31 Encounter for screening mammogram for malignant neoplasm of breast (principal)
CPT/HCPCS: 77063; 77067

== ENCOUNTER → 2021-11-27 | Outpatient (CLI) | payer OTHER, SELFPAY ==
--- NOTE | 2021-11-27 12:05 | BI_ITS ---
MAMMOGRAPHY - BILATERAL SCREENING REASON FOR EXAM: Female, 51 years old. Routine annual screening examination. PERTINENT HISTORY: Non-contributory. TECHNIQUE: Digital bilateral breast mansi (3D mammographic acquisition) in the CC and MLO projections. 2-D mediolateral oblique (MLO) and craniocaudad (CC) views of both breasts were obtained. CAD: Full Field Digital Mammography with Computer Added Detection was performed. COMPARISON: Comparison is made with prior study dated 10/31/2020. FINDINGS: Breast Composition: There are scattered areas of fibroglandular density. There are no dominant masses or suspicious calcifications. Stable small benign appearing bilateral axillary nodes. No other significant abnormalities are identified. There has been no significant change since the prior study. BI/SCRN MAMM (CAD)W/MANSI BILAT IMPRESSION: Stable bilateral screening mammogram. Yearly follow-up mammogram recommended. (A) ASSESSMENT CATEGORY: BIRADS Category 2: Benign. A letter regarding these results will be sent to the patient by the facility within 30 days. Approximately 10% of breast cancers are not detected by mammography. A normal mammogram should not delay biopsy of a clinically suspicious abnormality. [id number] Electronically Signed: Charles Warren MD at 13:14 EDT ,
== END | disposition home or self-care (01) ==
LOC: OPBI 12:04
PROVIDERS: PCP Family Medicine; Visit Provider Obstetrics & Gynecology
DX: Z12.31 Encounter for screening mammogram for malignant neoplasm of breast (principal)
CPT/HCPCS: 77063; 77067

== ENCOUNTER → 2022-12-18 | Outpatient (CLI) | payer OTHER, SELFPAY ==
--- NOTE | 2022-12-18 12:51 | BI_ITS ---
MAMMOGRAPHY - BILATERAL SCREENING REASON FOR EXAM: Female, 52 years old. Routine annual screening examination. PERTINENT HISTORY: Non-contributory. TECHNIQUE: Digital bilateral breast mansi (3D mammographic acquisition) in the CC and MLO projections. 2-D mediolateral oblique (MLO) and craniocaudad (CC) views of both breasts were obtained. CAD: Full Field Digital Mammography with Computer Added Detection was performed. COMPARISON: Comparison is made with prior study dated November 27, 2021 and October 31, 2020. FINDINGS: Breast Composition: There are scattered areas of fibroglandular density. There are no dominant masses or suspicious calcifications. Stable fat-containing left axillary lymph nodes. No other significant abnormalities are identified. There has been no significant change since the prior study. BI/SCRN MAMM (CAD)W/MANSI BILAT IMPRESSION: Stable bilateral screening mammogram. Yearly follow-up mammogram recommended. (A) ASSESSMENT CATEGORY: BIRADS Category 2: Benign. A letter regarding these results will be sent to the patient by the facility within 30 days. Approximately 10% of breast cancers are not detected by mammography. A normal mammogram should not delay biopsy of a clinically suspicious abnormality. [id number] Electronically Signed: hCarles Warren MD at 14:22 EDT ,
== END | disposition home or self-care (01) ==
LOC: OPBI 12:50
PROVIDERS: PCP Family Medicine; Referring Provider Obstetrics & Gynecology; Visit Provider Obstetrics & Gynecology
DX: Z12.31 Encounter for screening mammogram for malignant neoplasm of breast (principal)
CPT/HCPCS: 77063; 77067

== ENCOUNTER → 2023-01-02 | Outpatient (CLI) | payer OTHER, SELFPAY ==
[2023-01-08 14:09] LABS: HPV APTIMA, High Risk Negative (Negative)
== END | disposition home or self-care (01) ==
PROVIDERS: PCP Family Medicine; Visit Provider Obstetrics & Gynecology
DX: Z12.4 Encounter for screening for malignant neoplasm of cervix (principal)
CPT/HCPCS: 87624; 88175; G0145

== ENCOUNTER → 2024-01-12 | Outpatient (CLI) | payer OTHER, SELFPAY ==
--- NOTE | 2024-01-12 14:37 | BI_ITS ---
MAMMOGRAPHY - BILATERAL DIAGNOSTIC REASON FOR EXAM: Female, 53 years old. Palpable lump at the 4:00 position of the right breast. PERTINENT HISTORY: Non-contributory. TECHNIQUE: Digital bilateral breast cedric (3D mammographic acquisition) in the CC and MLO projections. 2-D mediolateral oblique (MLO) and craniocaudad (CC) views of both breasts were obtained. CAD: Full Field Digital Mammography with Computer Added Detection was performed. COMPARISON: Comparison is made with prior study dated December 18, 2022 and November 27, 2021. FINDINGS: Breast Composition: There are scattered areas of fibroglandular density. There are no dominant masses or suspicious calcifications. Stable asymmetry of breast tissue with more breast tissue is seen in the upper-outer quadrant of the left breast as compared to the right side. No other significant abnormalities are identified. There has been no significant change since the prior study. BI/DIAG MAMM W/CAD, BILAT IMPRESSION: Stable bilateral diagnostic mammogram. With the patient''s history of a palpable lump in the inferior medial aspect of the right breast, correlation with ultrasound is recommended. ASSESSMENT CATEGORY: BIRADS Category 0: Incomplete. Need additional imaging evaluation. A letter regarding these results will be sent to the patient by the facility within 30 days. Approximately 10% of breast cancers are not detected by mammography. A normal mammogram should not delay biopsy of a clinically suspicious abnormality. Electronically Signed: Charles Warren MD at 15:35 EDT ,
--- NOTE | 2024-01-12 14:37 | US_ITS ---
STUDY: ULTRASOUND BREAST - RIGHT REASON FOR EXAM: Female, 53 years old. Palpable lump in the right breast. TECHNIQUE: Axial and longitudinal images of the RIGHT breast were performed with a high resolution ultrasound transducer. # OF IMAGES: 12 COMPARISON: Comparison is made with prior mammogram dated January 12, 2024. FINDINGS: RIGHT Breast: The inferior medial aspect of the right breast was examined with ultrasound. No sonographic abnormality is seen. Clinical correlation recommended. US/Breast Limited Unilateral IMPRESSION: No sonographic abnormality is seen. Clinical correlation recommended. ASSESSMENT CATEGORY: BIRADS Category 1: Negative. A letter regarding these results will be sent to the patient by the facility within 30 days. Electronically Signed: Charles Warren MD at 9:09 EDT ,
== END | disposition home or self-care (01) ==
LOC: OPBI 14:37
PROVIDERS: PCP Family Medicine; Referring Provider Obstetrics & Gynecology; Visit Provider Obstetrics & Gynecology
DX: N63.14 Unspecified lump in the right breast, lower inner quadrant (principal)
CPT/HCPCS: 76642; 77062; 77066; G0279

== ENCOUNTER → 2025-01-12 | Outpatient (CLI) | payer OTHER, SELFPAY ==
--- NOTE | 2025-01-12 16:00 | BI_ITS ---
EXAM: SCRN MAMM (CAD)W/MANSI BILAT DATE: 01/12/2025 CLINICAL HISTORY: F, Age 54 y/o , SCREEN FOR BREAST CANCER No family history. TECHNIQUE: SCRN MAMM (CAD)W/MANSI BILAT COMPARISON: Prior exam(s) dated January 12, 2024.. FINDINGS: TISSUE DENSITY: Must pick one of these options! Bilateral Breast Mammographic Findings: No significant masses, calcifications or other abnormalities are identified. Stable asymmetry of breast tissue were more breast tissue is seen in the upper-outer quadrant of the left breast as compared to prior study. No suspicious masses, areas of developing architectural distortion, or suspicious calcifications. There has been no significant interval change. BI/SCRN MAMM (CAD)W/MANSI BILAT IMPRESSION: Stable bilateral screening mammogram. OVERALL FINAL ASSESSMENT BI-RADS 2: BENIGN RECOMMENDATION: Routine annual follow-up in 1 Year A letter with findings and recommendations will be mailed to the patient. Reading Location: [facility]
== END | disposition home or self-care (01) ==
PROVIDERS: Referring Provider Obstetrics & Gynecology; Visit Provider Obstetrics & Gynecology
DX: Z12.31 Encounter for screening mammogram for malignant neoplasm of breast (principal)
CPT/HCPCS: 77063; 77067